=== PATIENT | male | born 1960 | race Caucasian/White ===

== ENCOUNTER 2023-10-09 18:59 | Observation (INO) | payer MEDICARE ==
[~2023-10-09 18:59] MED LIST: D50W 50 ml Abboject IV ONE; SODIUM BICARBONATE 50 MEQ/50 ML ABBOJECT IV ONE
[2023-10-09] MEDS ORDERED: XYLOCAINE 1% HCL 20 ML MDV ONE (19:01)
[2023-10-09] MEDS ORDERED: SODIUM BICARBONATE 50 MEQ/50 ML ABBOJECT IV ONE (19:03)
[2023-10-09] MEDS ORDERED: D50W 50 ml Abboject IV ONE ×5 (19:06→19:15)
[2023-10-09] MEDS ORDERED: DEXTROSE 10% 250 ML 250 ML IV ONE ×2 (19:12→19:52)
[2023-10-09 19:35] LABS: Absolute Neutrophil Ct (ANC) 3.88 x10^3/uL (1.4-6.9); BASOPHIL % 0.7 % (0.0-0.4); Basophil (Absolute #) 0.05 x10^3/uL (0-0.4); Eosinophil % 2.9 % (0.00-5.0); Hemoglobin 12.4 g/dL (12.5-18.0); IMMATURE GRAN # 0.03 x10^3u/L (0.00-0.03); IMMATURE GRAN % 0.4 % (0.00-0.4); Lymphocyte (Absolute #) 2.15 x10^3/uL (1.0-4.6); Lymphocytes % 30.7 % (24.0-44.0); Mean Corpuscular Hemoglobin 27.7 pg (26-32); Mean Corpuscular Hgb Concent. 29.5 g/dL (32-36); Neutrophil % 55.3 % (36.0-66.0); Platelet Count 113 x10^3/uL (150-450); Red Blood Count 4.47 x10^6/uL (4.1-5.6); Red Cell Distribution Width 15.2 % (11.5-14.0)
[2023-10-09 19:35] LABS: VBG BASE EXCESS 8.4 (-2.0-2.0); VBG CARBOXYHEMOGLOBIN 4.1 % T HGB (0.0-6.9); VBG HEMOGLOBIN 12.7; VBG O2 SATURATION 80.3 (95-100); VBG POTASSIUM 3.2 (3.5-5.1); VBG pH 7.44 (7.32-7.42)
[2023-10-09 19:38] LABS: Appearance Clear (Clear); Bacteria None Seen /HPF (None Seen); Bilirubin Negative (Negative); Blood Negative (Negative); Epithelial Cells None Seen /HPF (None Seen); Glucose, Urine >=1000 mg/dL (Negative); Ketones Negative (Negative); Leukocyte Esterase Negative (Negative); Nitrite Negative (Negative); Ph 5.5 (4.6-8.0); Protein,Urine Dip Negative (Negative); RBC 0-2 /HPF (0-5)
[2023-10-09 19:41] LABS: ADD URINE CULTURE? NO (NO)
[2023-10-09 19:45] LABS: ACETAMINOPHEN < 10 ug/ml (10-30); ETHYL ALCOHOL < 10 mg/dL (0-10); SALICYLATE < 1.0 mg/dL (2-20)
[2023-10-09 19:48] LABS: Amphetamine,Urine NEGATIVE (NEGATIVE); Barbiturate,Urine NEGATIVE (NEGATIVE); Benzodiazepine,Urine NEGATIVE (NEGATIVE); Cocaine,Urine NEGATIVE (NEGATIVE); Methadone,Urine NEGATIVE (NEGATIVE); Opiate,Urine NEGATIVE (NEGATIVE); PCP,Urine NEGATIVE (NEGATIVE); THC,Urine NEGATIVE (NEGATIVE)
[2023-10-09 19:54] LABS: ALBUMIN 4.1 g/dL (3.5-5.0); ANION GAP 12.6 MEQ/L (5-15); BILIRUBIN,TOTAL 1.2 mg/dL (0.2-1.3); Calcium 8.8 mg/dL (8.4-10.2); Creatinine 1 1.7 mg/dL (0.66-1.25); EST GLOMERULAR FILTRATION RATE 44.5 ML/MIN; Potassium 3.2 mmol/L (3.5-5.1); Total Protein 6.8 g/dL (6.3-8.2)
[2023-10-09 20:34] LABS: INFLUENZA A NEGATIVE (NEGATIVE); INFLUENZA B NEGATIVE (NEGATIVE); RESPIRATORY SYNCTIAL VIRUS NEGATIVE (NEGATIVE); SARS-CoV-2 Xpert Express NEGATIVE (NEGATIVE)
[2023-10-09] MEDS ORDERED: Sodium Chloride 0.9% 1000 ML 1,000 ML ONE (21:18)
[2023-10-09] MEDS ORDERED: PIPERACILLIN/TAZOBACTAM IV ONE (21:18)
[2023-10-09] MEDS ORDERED: Sodium Chloride 100ML MINI-BAG PLUS 0 ML IV ONE (21:19)
[2023-10-09] MEDS: Sodium Chloride 0.9% 1000 ML 1,000 ML IV STA (21:21)
[2023-10-09] MEDS: PIPERACILLIN/TAZOBACTAM 3.375 GM in Sodium Chloride 100ML MINI-BAG PLUS 100 ML IV ONE (21:26)
--- NOTE | 2023-10-09 22:05 | ERPHSYRPT ---
- History of Present Illness Time Seen by Provider: 10/09/23 19:09 Source: patient Exam Limitations: no limitations Patient Subjective Stated Complaint: Unresponsive Triage Nursing Assessment: Patient brought to ED per friend in POV. Friend came to ER bay and asked for help that patient's blood sugar was 46 and he was given a cookie. Patient noted to be unsponsive. Patient removed from car with assist 5 staff members and placed onto bed. Patient's BS noted to be 26. Patient noted to have snoring respiration. Patient's skin flushed, cool and diaphoretic. Physician History: Patient arrives pale, diaphoretic, minimally responsive. Patient had a low blood sugar just prior to arrival at by a friend at [place]. He was given a cookie but then became unresponsive. Blood sugar initially in the ER is 26.He is having sonorous respirations, flushed skin, cool, diaphoretic. Patient's girlfriend and sister are on the way. Patient's girlfriend did eventually arrive states that patient has not eaten since approximately noon. Just prior to going to [place] he took his toujeo maxsolution. Did not eat after this. Allergies/Adverse Reactions: Penicillins Allergy (Verified 10/09/23 19:14) Hx Tetanus, Diphtheria Vaccination/Date Given: (unknown) Hx Influenza Vaccination/Date Given: (unknown) Hx Pneumococcal Vaccination/Date Given: (unknown) Immunizations Up to Date: (unknown) Travel Risk - International Travel Have you traveled outside of the country in past 3 weeks: No - Coronavirus Screening Are you exhibiting any of the following symptoms?: No Close contact with a COVID-19 positive Pt in past 14-21 Days: No - Vaccine Status Have you recieved a Covid-19 vaccination: No - Review of Systems All Other Systems: Unable due to condition - Past Medical History Pertinent Past Medical History: Yes Neurological History: No Pertinent History ENT History: No Pertinent History Cardiac History: Hypertension Respiratory History: No Pertinent History Endocrine Medical History: Diabetes Type II Musculoskeletal History: No Pertinent History GI Medical History: No Pertinent History History: No Pertinent History Psycho-Social History: No Pertinent History Male Reproductive Disorders: No Pertinent History - Past Surgical History Past Surgical History: Yes Other Surgical History: girlfriend states some type of heart surgery 10 years ago. Left eye surgery Apr 2023 - Social History Smoking Status: Unknown if ever smoked Exposure to second hand smoke: No Drug Use: none Patient Lives Alone: No - Nursing Vital Signs Nursing Vital Signs: Initial Vital Signs Pulse Rate 78 10/09/23 19:00 Respiratory Rate 20 10/09/23 19:00 Blood Pressure 150/112 10/09/23 19:00 O2 Sat by Pulse Oximetry 92 L 10/09/23 19:00 Pain Scale Pain Intensity 0 - Physical Exam SpO2 Interpretation: normal SpO2: 96 Comments: 10/09/23 23:15 Physical Exam Vitals signs and nursing note reviewed. Constitutional: Appearance: Minimally responsive, diaphoretic, patient does have a pulse HENT: Head: Normocephalic and atraumatic. Eyes: Conjunctiva/sclera: Conjunctivae normal. Neck: Trachea: No tracheal deviation. Cardiovascular: Rate and Rhythm: Normal rate. Pulmonary: Effort: Sonorous respiration Abdominal: Palpations: Abdomen is soft. Musculoskeletal: General: No deformity. Skin: General: Skin is warm and dry. Neurological/ Psychiatric: Mental Status: Minimally responsive, GCS less than - Course Nursing assessment & vital signs reviewed: Yes EKG Interpreted by Me: Sinus Rhythm (EKG shows sinus rhythm, right bundle branch block, no obvious STEMI) Ordered Tests: Active Orders 24 hr Category Date Time Status Bedrest ROUTINE Activity 10/09/23 22:14 Active Up With Assistance ROUTINE Activity 10/09/23 22:13 Active Call Admit Doctor for Orders ON ADMISSION Care 10/09/23 22:13 Active Vessel Specialist STAT Care 10/09/23 19:10 Active Code Status Order ROUTINE Care 10/09/23 22:13 Active Fall Protocol ROUTINE Care 10/09/23 22:[address] in Observation ROUTINE Care 10/09/23 22:13 Active Rectal Temperature STAT Care 10/09/23 19:09 Completed House Regular Diet Diet 10/10/23 Breakfast Active CHEST 1 VIEW (PORTABLE) Stat Exams 10/09/23 19:10 Taken HEAD WITHOUT CONTRAST [CT] Stat Exams 10/09/23 19:10 Taken ACETAMINOPHEN Stat Lab 10/09/23 19:20 Completed BLOOD CULTURE Stat Lab 10/09/23 19:55 Received CBC W DIFF Stat Lab 10/09/23 19:09 Completed CMP Stat Lab 10/09/23 19:23 Completed CULTURE,URINE Stat Lab 10/09/23 19:28 Ordered ETHYL ALCOHOL Stat Lab 10/09/23 19:20 Completed Lactic Acid Stat Lab 10/09/23 19:33 Completed Lactic Acid Stat Lab 10/09/23 21:37 Received NT PRO BNPII Stat Lab 10/09/23 19:23 Completed POCT GLUCOSE Stat Lab 10/09/23 19:24 Completed POCT GLUCOSE Stat Lab 10/09/23 19:47 Completed POCT GLUCOSE Stat Lab 10/09/23 20:38 Completed POCT GLUCOSE Stat Lab 10/09/23 21:52 Completed POCT GLUCOSE Stat Lab 10/09/23 23:11 Completed SALICYLATE Stat Lab 10/09/23 19:20 Completed TROPONIN Q4H Lab 10/09/23 19:23 Completed TROPONIN Q4H Lab 10/09/23 23:15 Ordered TROPONIN Q4H Lab 10/10/23 03:15 Ordered UA W/RFX UR CULTURE Stat Lab 10/09/23 19:28 Completed Urine Triage Profile Stat Lab 10/09/23 19:28 Completed VENOUS BLOOD GAS Stat Lab 10/09/23 19:33 Completed Pulse Oximetry CONTINUOUS RT 10/09/23 22:14 Active Respiratory Therapy Consult ONCE RT 10/09/23 22:13 Active Standby STAT RT 10/09/23 19:42 Completed Transfer Order Routine Transfer 10/09/23 Ordered Medication Summary Discontinued Medications Generic Name Dose Route Start Last Admin Trade Name Freq PRN Reason Stop Dose Admin Cefepime HCl Confirm 10/09/23 22:26 Cefepime Hcl 2 Gm Vial Administered 10/09/23 22:27 Dose 2 g .ROUTE .STK-MED ONE Dextrose Confirm 10/09/23 19:06 Dextrose 50%-Water 50 Ml Abboject Administered 10/09/23 19:07 Dose 50 ml IV .STK-MED ONE Dextrose Confirm 10/09/23 19:15 Dextrose 50%-Water 50 Ml Abboject Administered 10/09/23 19:16 Dose 50 ml IV .STK-MED ONE Sodium Chloride 1,000 mls @ 999 mls/hr 10/09/23 19:09 10/09/23 22:56 Sodium Chloride 0.9% 1000 Ml IV 10/09/23 20:09 Infused .Q1H1M STA Infusion Dextrose Confirm 10/09/23 19:52 Dextrose 10% 250 Ml Administered 10/09/23 19:53 Dose 250 mls @ ud IV .STK-MED ONE Piperacillin Sod/Tazobactam 100 mls @ 200 mls/hr 10/09/23 20:15 10/09/23 21:26 Sod 3.375 gm/ Sodium Chloride IV 10/09/23 20:44 Not Given STAT ONE Sodium Chloride Confirm 10/09/23 21:18 Sodium Chloride 0.9% 1000 Ml Administered 10/09/23 21:19 Dose 1,000 mls @ ud .ROUTE .STK-MED ONE Sodium Chloride Confirm 10/09/23 21:19 Sodium Chloride 100ml Mini-Bag Plus Administered 10/09/23 21:20 Dose 100 mls @ ud IV .STK-MED ONE Cefepime HCl 2 g/ Sodium 100 mls @ 200 mls/hr 10/09/23 22:18 10/09/23 22:38 Chloride IV 10/09/23 22:47 200 mls/hr STAT STA Administration Ceftriaxone Sodium/Dextrose Confirm 10/09/23 22:21 Rocephin 2 Gm-D5w 50ml Bag Administered 10/09/23 22:22 Dose 2 g in 50 mls @ ud IV .STK-MED ONE Sodium Chloride Confirm 10/09/23 22:27 Sodium Chloride 0.9% Administered 10/09/23 22:28 Dose 100 mls @ ud .ROUTE .STK-MED ONE Piperacillin Sod/Tazobactam Sod Confirm 10/09/23 21:18 Piperacillin/Tazobactam Sodium 3.375 Gm Vial Administered 10/09/23 21:19 Dose 3.375 gm IV .STK-MED ONE Lab/Rad Data: Laboratory Result Diagrams 10/09/23 19:09 10/09/23 19:23 Laboratory Results 10/09/23 10/09/23 10/09/23 Range/Units 23:11 21:52 20:38 WBC (4.0-10.5) x10^3/uL RBC (4.1-5.6) x10^6/uL Hgb (12.5-18.0) g/dL Hct (42-50) % MCV (78-100) fL MCH (26-32) pg MCHC (32-36) g/dL RDW (11.5-14.0) % Plt Count (150-450) x10^3/uL MPV (7.5-11.0) fL Gran % (36.0-66.0) % Immature Gran % (Auto) (0.00-0.4) % Nucleat RBC Rel Count (0.00-0.1) % Eos # (Auto) (0-0.5) x10^3/uL Immature Gran # (Auto) (0.00-0.03) x10^3u/L Absolute Lymphs (auto) (1.0-4.6) x10^3/uL Absolute Monos (auto) (0.0-1.3) x10^3/uL Absolute Nucleated RBC (0.00-0.01) x10^3u/L Lymphocytes % (24.0-44.0) % Monocytes % (0.0-12.0) % Eosinophils % (0.00-5.0) % Basophils % (0.0-0.4) % Absolute Granulocytes (1.4-6.9) x10^3/uL Basophils # (0-0.4) x10^3/uL pO2/FiO2 Ratio % VBG pH (7.32-7.42) VBG pCO2 at Pat Temp (42-55) mm/Hg VBG pO2 at Pat Temp (25-40) mm/Hg VBG HCO3 (22-28) meq/L VBG O2 Sat (Christel) (95-100) VBG Base Excess (-2.0-2.0) VBG Hemoglobin VBG Carboxyhemoglobin (0.0-6.9) % T HGB POC Potassium (3.5-5.1) Sodium (135-145) mmol/L Potassium (3.5-5.1) mmol/L Chloride (98-107) mmol/L Carbon Dioxide (22-30) mmol/L Anion Gap (5-15) MEQ/L BUN (9-20) mg/dL Creatinine (0.66-1.25) mg/dL Estimated GFR ML/MIN Glucose (74-106) mg/dL POC Glucometer 147 H 150 H 118 H (74 to 106) mg/dL Lactic Acid (0.4-2.0) Calcium (8.4-10.2) mg/dL Total Bilirubin (0.2-1.3) mg/dL AST (17-59) U/L ALT (0-50) U/L Alkaline Phosphatase (38-126) U/L Troponin I (0.000-0.034) ng/mL NT-Pro-B Natriuret Pep (<300) pg/mL Serum Total Protein (6.3-8.2) g/dL Albumin (3.5-5.0) g/dL Urine Color (Yellow) Urine Appearance (Clear) Urine pH (4.6-8.0) Ur Specific Sharon (1.005-1.030) Urine Protein (Negative) Urine Glucose (UA) (Negative) mg/dL Urine Ketones (Negative) Urine Blood (Negative) Urine Nitrite (Negative) Urine Bilirubin (Negative) Urine Urobilinogen (0.2) mg/dL Ur Leukocyte Esterase (Negative) U Hyaline Cast (Auto) (0-2) /LPF Urine Microscopic RBC (0-5) /HPF Urine Microscopic WBC (0-5) /HPF Ur Epithelial Cells (None Seen) /HPF Urine Bacteria (None Seen) /HPF Urine Culture Reflexed (NO) Salicylates (2-20) mg/dL Urine Opiates Level (NEGATIVE) Ur Methadone (NEGATIVE) Acetaminophen (10-30) ug/ml Urine Barbiturates (NEGATIVE) Ur Phencyclidine (PCP) (NEGATIVE) Urine Amphetamine (NEGATIVE) U Benzodiazepine Level (NEGATIVE) Urine Cocaine (NEGATIVE) Urine Marijuana (THC) (NEGATIVE) Ethyl Alcohol (0-10) mg/dL Influenza Type A Ag (NEGATIVE) Influenza Type B Ag (NEGATIVE) RSV (PCR) (NEGATIVE) SARS-CoV-2 (PCR) (NEGATIVE) 10/09/23 10/09/23 10/09/23 Range/Units 19:47 19:33 19:33 WBC (4.0-10.5) x10^3/uL RBC (4.1-5.6) x10^6/uL Hgb (12.5-18.0) g/dL Hct (42-50) % MCV (78-100) fL MCH (26-32) pg MCHC (32-36) g/dL RDW (11.5-14.0) % Plt Count (150-450) x10^3/uL MPV (7.5-11.0) fL Gran % (36.0-66.0) % Immature Gran % (Auto) (0.00-0.4) % Nucleat RBC Rel Count (0.00-0.1) % Eos # (Auto) (0-0.5) x10^3/uL Immature Gran # (Auto) (0.00-0.03) x10^3u/L Absolute Lymphs (auto) (1.0-4.6) x10^3/uL Absolute Monos (auto) (0.0-1.3) x10^3/uL Absolute Nucleated RBC (0.00-0.01) x10^3u/L Lymphocytes % (24.0-44.0) % Monocytes % (0.0-12.0) % Eosinophils % (0.00-5.0) % Basophils % (0.0-0.4) % Absolute Granulocytes (1.4-6.9) x10^3/uL Basophils # (0-0.4) x10^3/uL pO2/FiO2 Ratio 36.0 % VBG pH 7.44 H (7.32-7.42) VBG pCO2 at Pat Temp 50 (42-55) mm/Hg VBG pO2 at Pat Temp 51 H (25-40) mm/Hg VBG HCO3 34.0 H* (22-28) meq/L VBG O2 Sat (Christel) 80.3 L (95-100) VBG Base Excess 8.4 H (-2.0-2.0) VBG Hemoglobin 12.7 VBG Carboxyhemoglobin 4.1 (0.0-6.9) % T HGB POC Potassium 3.2 L (3.5-5.1) Sodium (135-145) mmol/L Potassium (3.5-5.1) mmol/L Chloride (98-107) mmol/L Carbon Dioxide (22-30) mmol/L Anion Gap (5-15) MEQ/L BUN (9-20) mg/dL Creatinine (0.66-1.25) mg/dL Estimated GFR ML/MIN Glucose (74-106) mg/dL POC Glucometer 116 H (74 to 106) mg/dL Lactic Acid 2.7 H (0.4-2.0) Calcium (8.4-10.2) mg/dL Total Bilirubin (0.2-1.3) mg/dL AST (17-59) U/L ALT (0-50) U/L Alkaline Phosphatase (38-126) U/L Troponin I (0.000-0.034) ng/mL NT-Pro-B Natriuret Pep (<300) pg/mL Serum Total Protein (6.3-8.2) g/dL Albumin (3.5-5.0) g/dL Urine Color (Yellow) Urine Appearance (Clear) Urine pH (4.6-8.0) Ur Specific Sharon (1.005-1.030) Urine Protein (Negative) Urine Glucose (UA) (Negative) mg/dL Urine Ketones (Negative) Urine Blood (Negative) Urine Nitrite (Negative) Urine Bilirubin (Negative) Urine Urobilinogen (0.2) mg/dL Ur Leukocyte Esterase (Negative) U Hyaline Cast (Auto) (0-2) /LPF Urine Microscopic RBC (0-5) /HPF Urine Microscopic WBC (0-5) /HPF Ur Epithelial Cells (None Seen) /HPF Urine Bacteria (None Seen) /HPF Urine Culture Reflexed (NO) Salicylates (2-20) mg/dL Urine Opiates Level (NEGATIVE) Ur Methadone (NEGATIVE) Acetaminophen (10-30) ug/ml Urine Barbiturates (NEGATIVE) Ur Phencyclidine (PCP) (NEGATIVE) Urine Amphetamine (NEGATIVE) U Benzodiazepine Level (NEGATIVE) Urine Cocaine (NEGATIVE) Urine Marijuana (THC) (NEGATIVE) Ethyl Alcohol (0-10) mg/dL Influenza Type A Ag (NEGATIVE) Influenza Type B Ag (NEGATIVE) RSV (PCR) (NEGATIVE) SARS-CoV-2 (PCR) (NEGATIVE) 10/09/23 10/09/23 10/09/23 Range/Units 19:28 19:28 19:24 WBC (4.0-10.5) x10^3/uL RBC (4.1-5.6) x10^6/uL Hgb (12.5-18.0) g/dL Hct (42-50) % MCV (78-100) fL MCH (26-32) pg MCHC (32-36) g/dL RDW (11.5-14.0) % Plt Count (150-450) x10^3/uL MPV (7.5-11.0) fL Gran % (36.0-66.0) % Immature Gran % (Auto) (0.00-0.4) % Nucleat RBC Rel Count (0.00-0.1) % Eos # (Auto) (0-0.5) x10^3/uL Immature Gran # (Auto) (0.00-0.03) x10^3u/L Absolute Lymphs (auto) (1.0-4.6) x10^3/uL Absolute Monos (auto) (0.0-1.3) x10^3/uL Absolute Nucleated RBC (0.00-0.01) x10^3u/L Lymphocytes % (24.0-44.0) % Monocytes % (0.0-12.0) % Eosinophils % (0.00-5.0) % Basophils % (0.0-0.4) % Absolute Granulocytes (1.4-6.9) x10^3/uL Basophils # (0-0.4) x10^3/uL pO2/FiO2 Ratio % VBG pH (7.32-7.42) VBG pCO2 at Pat Temp (42-55) mm/Hg VBG pO2 at Pat Temp (25-40) mm/Hg VBG HCO3 (22-28) meq/L VBG O2 Sat (Christel) (95-100) VBG Base Excess (-2.0-2.0) VBG Hemoglobin VBG Carboxyhemoglobin (0.0-6.9) % T HGB POC Potassium (3.5-5.1) Sodium (135-145) mmol/L Potassium (3.5-5.1) mmol/L Chloride (98-107) mmol/L Carbon Dioxide (22-30) mmol/L Anion Gap (5-15) MEQ/L BUN (9-20) mg/dL Creatinine (0.66-1.25) mg/dL Estimated GFR ML/MIN Glucose (74-106) mg/dL POC Glucometer 117 H (74 to 106) mg/dL Lactic Acid (0.4-2.0) Calcium (8.4-10.2) mg/dL Total Bilirubin (0.2-1.3) mg/dL AST (17-59) U/L ALT (0-50) U/L Alkaline Phosphatase (38-126) U/L Troponin I (0.000-0.034) ng/mL NT-Pro-B Natriuret Pep (<300) pg/mL Serum Total Protein (6.3-8.2) g/dL Albumin (3.5-5.0) g/dL Urine Color Yellow (Yellow) Urine Appearance Clear (Clear) Urine pH 5.5 (4.6-8.0) Ur Specific Sharon 1.020 (1.005-1.030) Urine Protein Negative (Negative) Urine Glucose (UA) >=1000 A (Negative) mg/dL Urine Ketones Negative (Negative) Urine Blood Negative (Negative) Urine Nitrite Negative (Negative) Urine Bilirubin Negative (Negative) Urine Urobilinogen 1.0 A (0.2) mg/dL Ur Leukocyte Esterase Negative (Negative) U Hyaline Cast (Auto) 3-5 A (0-2) /LPF Urine Microscopic RBC 0-2 (0-5) /HPF Urine Microscopic WBC 3-5 (0-5) /HPF Ur Epithelial Cells None Seen (None Seen) /HPF Urine Bacteria None Seen (None Seen) /HPF Urine Culture Reflexed NO (NO) Salicylates (2-20) mg/dL Urine Opiates Level NEGATIVE (NEGATIVE) Ur Methadone NEGATIVE (NEGATIVE) Acetaminophen (10-30) ug/ml Urine Barbiturates NEGATIVE (NEGATIVE) Ur Phencyclidine (PCP) NEGATIVE (NEGATIVE) Urine Amphetamine NEGATIVE (NEGATIVE) U Benzodiazepine Level NEGATIVE (NEGATIVE) Urine Cocaine NEGATIVE (NEGATIVE) Urine Marijuana (THC) NEGATIVE (NEGATIVE) Ethyl Alcohol (0-10) mg/dL Influenza Type A Ag (NEGATIVE) Influenza Type B Ag (NEGATIVE) RSV (PCR) (NEGATIVE) SARS-CoV-2 (PCR) (NEGATIVE) 10/09/23 10/09/23 10/09/23 Range/Units 19:23 19:23 19:20 WBC (4.0-10.5) x10^3/uL RBC (4.1-5.6) x10^6/uL Hgb (12.5-18.0) g/dL Hct (42-50) % MCV (78-100) fL MCH (26-32) pg MCHC (32-36) g/dL RDW (11.5-14.0) % Plt Count (150-450) x10^3/uL MPV (7.5-11.0) fL Gran % (36.0-66.0) % Immature Gran % (Auto) (0.00-0.4) % Nucleat RBC Rel Count (0.00-0.1) % Eos # (Auto) (0-0.5) x10^3/uL Immature Gran # (Auto) (0.00-0.03) x10^3u/L Absolute Lymphs (auto) (1.0-4.6) x10^3/uL Absolute Monos (auto) (0.0-1.3) x10^3/uL Absolute Nucleated RBC (0.00-0.01) x10^3u/L Lymphocytes % (24.0-44.0) % Monocytes % (0.0-12.0) % Eosinophils % (0.00-5.0) % Basophils % (0.0-0.4) % Absolute Granulocytes (1.4-6.9) x10^3/uL Basophils # (0-0.4) x10^3/uL pO2/FiO2 Ratio % VBG pH (7.32-7.42) VBG pCO2 at Pat Temp (42-55) mm/Hg VBG pO2 at Pat Temp (25-40) mm/Hg VBG HCO3 (22-28) meq/L VBG O2 Sat (Christel) (95-100) VBG Base Excess (-2.0-2.0) VBG Hemoglobin VBG Carboxyhemoglobin (0.0-6.9) % T HGB POC Potassium (3.5-5.1) Sodium 141 (135-145) mmol/L Potassium 3.2 L (3.5-5.1) mmol/L Chloride 103 (98-107) mmol/L Carbon Dioxide 29 (22-30) mmol/L Anion Gap 12.6 (5-15) MEQ/L BUN 27 H (9-20) mg/dL Creatinine 1.70 H (0.66-1.25) mg/dL Estimated GFR 44.5 ML/MIN Glucose 145 H (74-106) mg/dL POC Glucometer (74 to 106) mg/dL Lactic Acid (0.4-2.0) Calcium 8.8 (8.4-10.2) mg/dL Total Bilirubin 1.20 (0.2-1.3) mg/dL AST 28 (17-59) U/L ALT 16 (0-50) U/L Alkaline Phosphatase 82 (38-126) U/L Troponin I < 0.012 (0.000-0.034) ng/mL NT-Pro-B Natriuret Pep 796 (<300) pg/mL Serum Total Protein 6.8 (6.3-8.2) g/dL Albumin 4.1 (3.5-5.0) g/dL Urine Color (Yellow) Urine Appearance (Clear) Urine pH (4.6-8.0) Ur Specific Sharon (1.005-1.030) Urine Protein (Negative) Urine Glucose (UA) (Negative) mg/dL Urine Ketones (Negative) Urine Blood (Negative) Urine Nitrite (Negative) Urine Bilirubin (Negative) Urine Urobilinogen (0.2) mg/dL Ur Leukocyte Esterase (Negative) U Hyaline Cast (Auto) (0-2) /LPF Urine Microscopic RBC (0-5) /HPF Urine Microscopic WBC (0-5) /HPF Ur Epithelial Cells (None Seen) /HPF Urine Bacteria (None Seen) /HPF Urine Culture Reflexed (NO) Salicylates < 1.0 L (2-20) mg/dL Urine Opiates Level (NEGATIVE) Ur Methadone (NEGATIVE) Acetaminophen < 10 L (10-30) ug/ml Urine Barbiturates (NEGATIVE) Ur Phencyclidine (PCP) (NEGATIVE) Urine Amphetamine (NEGATIVE) U Benzodiazepine Level (NEGATIVE) Urine Cocaine (NEGATIVE) Urine Marijuana (THC) (NEGATIVE) Ethyl Alcohol < 10 (0-10) mg/dL Influenza Type A Ag (NEGATIVE) Influenza Type B Ag (NEGATIVE) RSV (PCR) (NEGATIVE) SARS-CoV-2 (PCR) (NEGATIVE) 10/09/23 10/09/23 Range/Units 19:20 19:09 WBC 7.0 (4.0-10.5) x10^3/uL RBC 4.47 (4.1-5.6) x10^6/uL Hgb 12.4 L (12.5-18.0) g/dL Hct 42.0 (42-50) % MCV 94.0 (78-100) fL MCH 27.7 (26-32) pg MCHC 29.5 L (32-36) g/dL RDW 15.2 H (11.5-14.0) % Plt Count 113 L (150-450) x10^3/uL MPV 11.0 (7.5-11.0) fL Gran % 55.3 (36.0-66.0) % Immature Gran % (Auto) 0.4 (0.00-0.4) % Nucleat RBC Rel Count 0.0 (0.00-0.1) % Eos # (Auto) 0.20 (0-0.5) x10^3/uL Immature Gran # (Auto) 0.03 (0.00-0.03) x10^3u/L Absolute Lymphs (auto) 2.15 (1.0-4.6) x10^3/uL Absolute Monos (auto) 0.70 (0.0-1.3) x10^3/uL Absolute Nucleated RBC 0.00 (0.00-0.01) x10^3u/L Lymphocytes % 30.7 (24.0-44.0) % Monocytes % 10.0 (0.0-12.0) % Eosinophils % 2.9 (0.00-5.0) % Basophils % 0.7 (0.0-0.4) % Absolute Granulocytes 3.88 (1.4-6.9) x10^3/uL Basophils # 0.05 (0-0.4) x10^3/uL pO2/FiO2 Ratio % VBG pH (7.32-7.42) VBG pCO2 at Pat Temp (42-55) mm/Hg VBG pO2 at Pat Temp (25-40) mm/Hg VBG HCO3 (22-28) meq/L VBG O2 Sat (Christel) (95-100) VBG Base Excess (-2.0-2.0) VBG Hemoglobin VBG Carboxyhemoglobin (0.0-6.9) % T HGB POC Potassium (3.5-5.1) Sodium (135-145) mmol/L Potassium (3.5-5.1) mmol/L Chloride (98-107) mmol/L Carbon Dioxide (22-30) mmol/L Anion Gap (5-15) MEQ/L BUN (9-20) mg/dL Creatinine (0.66-1.25) mg/dL Estimated GFR ML/MIN Glucose (74-106) mg/dL POC Glucometer (74 to 106) mg/dL Lactic Acid (0.4-2.0) Calcium (8.4-10.2) mg/dL Total Bilirubin (0.2-1.3) mg/dL AST (17-59) U/L ALT (0-50) U/L Alkaline Phosphatase (38-126) U/L Troponin I (0.000-0.034) ng/mL NT-Pro-B Natriuret Pep (<300) pg/mL Serum Total Protein (6.3-8.2) g/dL Albumin (3.5-5.0) g/dL Urine Color (Yellow) Urine Appearance (Clear) Urine pH (4.6-8.0) Ur Specific Sharon (1.005-1.030) Urine Protein (Negative) Urine Glucose (UA) (Negative) mg/dL Urine Ketones (Negative) Urine Blood (Negative) Urine Nitrite (Negative) Urine Bilirubin (Negative) Urine Urobilinogen (0.2) mg/dL Ur Leukocyte Esterase (Negative) U Hyaline Cast (Auto) (0-2) /LPF Urine Microscopic RBC (0-5) /HPF Urine Microscopic WBC (0-5) /HPF Ur Epithelial Cells (None Seen) /HPF Urine Bacteria (None Seen) /HPF Urine Culture Reflexed (NO) Salicylates (2-20) mg/dL Urine Opiates Level (NEGATIVE) Ur Methadone (NEGATIVE) Acetaminophen (10-30) ug/ml Urine Barbiturates (NEGATIVE) Ur Phencyclidine (PCP) (NEGATIVE) Urine Amphetamine (NEGATIVE) U Benzodiazepine Level (NEGATIVE) Urine Cocaine (NEGATIVE) Urine Marijuana (THC) (NEGATIVE) Ethyl Alcohol (0-10) mg/dL Influenza Type A Ag NEGATIVE (NEGATIVE) Influenza Type B Ag NEGATIVE (NEGATIVE) RSV (PCR) NEGATIVE (NEGATIVE) SARS-CoV-2 (PCR) NEGATIVE (NEGATIVE) - Progress Progress: improved Progress Note: 10/09/23 23:17 Patient is minimally responsive, blood glucose of 26, differential diagnosis includes stroke, STEMI, sepsis, other infection, hypoglycemia due to medications. See nursing charting for list of full details. In short several things simultaneously happened including drilling an IO for access as patient did not have any IV access. Patient was given D50 through the IO. Patient became more responsive, D10 drip was started. I did obtain a head CT, troponins, toxicology screening, basic labs, fluids. I also gave cefepime 1 dose in case there was a component of sepsis with this. Overall, patient did respond well to medications. Head CT was negative for any acute stroke, bleed. EKG demonstrated no STEMI, other obvious cardiac issues. Patient did wake up more blood glucose consistently greater than 100. Patient was able to eat an full meal. Given overall presentation I do believe patient needs to be admitted for observation overnight, continued close monitoring, possible multiple troponins a nd continued antibiotics. Given all this I did speak to the hospitalist, Dr. Velez. Unfortunately, patient was also given bicarb when D50 was called for, 2 rounds through the IO during the commotion. This was due to a medication error, incident report was filed and I did update the family about the incident. Discussed with : Other (Yousuf Velez) Counseled pt/family regarding: lab results, diagnosis, need for follow-up, rad results - Departure Departure Disposition: Home Clinical Impression: Hypoglycemia Condition: Stable Critical Care Time: No
[2023-10-09] MEDS ORDERED: ROCEPHIN 2 Gm-D5w 50ML BAG** 0 G/0 ML IVPB IV ONE (22:21)
[2023-10-09] MEDS ORDERED: Maxipime 2 GM ONE (22:26)
[2023-10-09] MEDS ORDERED: Sodium Chloride 0.9% 100 ML ONE (22:27)
[2023-10-09] MEDS: Maxipime 2 GM** 2 G in Sodium Chloride 0.9% 100 ML IV STA (22:38)
--- NOTE | 2023-10-10 00:30 | PCM.HP ---
History of Present Illness - Chief Complaint Chief Complaint: hypoglycemia Date: 10/09/23 History of Present Illness: Mr. RAM is a 63 year old male with a past medical history significant for hypertension, diabetes, and hyperlipdemia who was brought to the hospital with altered mental status attributed to marked hypoglycemia. He had given himself his usual insulin shot and then went to a function where he was confused. Blood sugars were in the 20-30s, so he was given multiple doses of glucose to raise his sugars. He has been recommended for admission. He is resting in bed, lethargic but arousable. He is hemodynamically stable and in no apparent distress. - Review of Systems Constitutional: No Fever, No Chills, No Fatigue Eyes: No Vision Changes Ears, Nose, & Throat: No Mouth Pain Respiratory: No Cough, No Orthopnea, No Short Of Breath Cardiac: No Chest Pain, No Edema, No Palpitations Abdominal/Gastrointestinal: No Abdominal Pain, No Nausea, No Vomiting Genitourinary Symptoms: No Dysuria, No Frequency, No Hematuria Musculoskeletal: No Arthralgias Skin: No Rash, No Skin Lesions Neurological: No Dizziness, No Focal Weakness, No Gait Changes Psychological: No Suicidal Ideations Endocrine: No Polyuria, No Polydipsia Medications & Allergies Home Medications: Home Medication List Aspirin EC 81 mg [Ecotrin 81 mg] 81 mg PO DAILY 10/09/23 [History Confirmed 10/09/23] Clopidogrel Bisulfate [Clopidogrel] 75 mg PO DAILY 10/09/23 [History Confirmed 10/09/23] Dulaglutide [Trulicity] 4.5 mg SQ WEEKLY 10/09/23 [History Confirmed 10/09/23] Empagliflozin/Linagliptin [Glyxambi 25 mg-5 mg Tablet] 1 each PO DAILY 10/09/23 [History Confirmed 10/09/23] Evolocumab [Repatha Sureclick] 140 mg SQ UD 10/09/23 [History Confirmed 10/09/23] Ezetimibe 10 mg [Zetia 10 MG] 10 mg PO DAILY 10/09/23 [History Confirmed 10/09/23] Furosemide 20 mg [Lasix 20 mg] 20 mg PO DAILY 10/09/23 [History Confirmed 10/09/23] Insulin Glargine,Hum.rec.anlog [Jhon Contreras] 50 unit SQ DAILY 10/09/23 [History Confirmed 10/09/23] Metoprolol Succinate 25 mg PO DAILY 10/09/23 [History Confirmed 10/09/23] Pentoxifylline 400 mg PO BID 10/09/23 [History Confirmed 10/09/23] Pioglitazone HCl 45 mg PO DAILY 10/09/23 [History Confirmed 10/09/23] Potassium Chloride 8 meq PO DAILY 10/09/23 [History Confirmed 10/09/23] Ubidecarenone/Vit E Acet [Co Q-10 100 mg Softgel] 1 each PO DAILY 10/09/23 [History Confirmed 10/09/23] lisinopriL [Lisinopril] 40 mg PO DAILY 10/09/23 [History Confirmed 10/09/23] Allergies/Adverse Reactions: Allergies Allergy/AdvReac Type Severity Reaction Status Date / Time Penicillins Allergy Verified 10/09/23 19:14 - Past Medical History Past Medical History: Yes Neurological History: No Pertinent History ENT History: No Pertinent History Cardiac History: Hypertension Respiratory History: No Pertinent History Endocrine Medical History: Diabetes Type II Musculoskelatal History: No Pertinent History GI Medical History: No Pertinent History History: No Pertinent History Pyscho-Social History: No Pertinent History Male Reproductive Disorders: No Pertinent History - Past Surgical History Past Surgical History: Yes Other Surgical History: girlfriend states some type of heart surgery 10 years ago. Left eye surgery Apr 2023 - Social History Smoking Status: Unknown if ever smoked Exposure to second hand smoke: No Alcohol: None Drug Use: none - Physical Exam Vital Signs: Vital Signs - 24 hr Temp Pulse Resp BP BP Pulse Ox 10/09/23 23:35 76 20 97 10/09/23 23:22 96 10/09/23 23:00 72 2 L 136/50 97 10/09/23 22:31 73 6 L 144/59 97 10/09/23 22:00 97.2 F 79 14 159/62 96 10/09/23 21:30 97.2 F 79 15 117/66 97 10/09/23 21:01 96.4 F 77 14 123/69 96 10/09/23 20:31 71 15 148/66 100 10/09/23 20:00 72 19 146/72 100 10/09/23 19:38 73 16 142/102 98 10/09/23 19:20 82 17 99 10/09/23 19:00 78 20 150/112 92 L General Appearance: no apparent distress Neurologic Exam: disoriented Neck Exam: normal inspection, supple Respiratory Exam: No respiratory distress, No accessory muscle use Cardiovascular Exam: regular rate/rhythm Gastrointestinal/Abdomen Exam: soft Extremity Exam: No pedal edema, No swelling Skin Exam: normal color, No rash Results - Labs Lab/Micro Results: Lab Results-Last 24 Hours 10/09/23 10/09/23 10/09/23 Range/Units 19:09 19:20 19:20 WBC 7.0 (4.0-10.5) x10^3/uL RBC 4.47 (4.1-5.6) x10^6/uL Hgb 12.4 L (12.5-18.0) g/dL Hct 42.0 (42-50) % MCV 94.0 (78-100) fL MCH 27.7 (26-32) pg MCHC 29.5 L (32-36) g/dL RDW 15.2 H (11.5-14.0) % Plt Count 113 L (150-450) x10^3/uL MPV 11.0 (7.5-11.0) fL Gran % 55.3 (36.0-66.0) % Immature Gran % (Auto) 0.4 (0.00-0.4) % Nucleat RBC Rel Count 0.0 (0.00-0.1) % Eos # (Auto) 0.20 (0-0.5) x10^3/uL Immature Gran # (Auto) 0.03 (0.00-0.03) x10^3u/L Absolute Lymphs (auto) 2.15 (1.0-4.6) x10^3/uL Absolute Monos (auto) 0.70 (0.0-1.3) x10^3/uL Absolute Nucleated RBC 0.00 (0.00-0.01) x10^3u/L Lymphocytes % 30.7 (24.0-44.0) % Monocytes % 10.0 (0.0-12.0) % Eosinophils % 2.9 (0.00-5.0) % Basophils % 0.7 (0.0-0.4) % Absolute Granulocytes 3.88 (1.4-6.9) x10^3/uL Basophils # 0.05 (0-0.4) x10^3/uL pO2/FiO2 Ratio % VBG pH (7.32-7.42) VBG pCO2 at Pat Temp (42-55) mm/Hg VBG pO2 at Pat Temp (25-40) mm/Hg VBG HCO3 (22-28) meq/L VBG O2 Sat (Christel) (95-100) VBG Base Excess (-2.0-2.0) VBG Hemoglobin VBG Carboxyhemoglobin (0.0-6.9) % T HGB POC Potassium (3.5-5.1) Sodium (135-145) mmol/L Potassium (3.5-5.1) mmol/L Chloride (98-107) mmol/L Carbon Dioxide (22-30) mmol/L Anion Gap (5-15) MEQ/L BUN (9-20) mg/dL Creatinine (0.66-1.25) mg/dL Estimated GFR ML/MIN Glucose (74-106) mg/dL POC Glucometer (74 to 106) mg/dL Lactic Acid (0.4-2.0) Calcium (8.4-10.2) mg/dL Total Bilirubin (0.2-1.3) mg/dL AST (17-59) U/L ALT (0-50) U/L Alkaline Phosphatase (38-126) U/L Troponin I (0.000-0.034) ng/mL NT-Pro-B Natriuret Pep (<300) pg/mL Serum Total Protein (6.3-8.2) g/dL Albumin (3.5-5.0) g/dL Urine Color (Yellow) Urine Appearance (Clear) Urine pH (4.6-8.0) Ur Specific Crooks (1.005-1.030) Urine Protein (Negative) Urine Glucose (UA) (Negative) mg/dL Urine Ketones (Negative) Urine Blood (Negative) Urine Nitrite (Negative) Urine Bilirubin (Negative) Urine Urobilinogen (0.2) mg/dL Ur Leukocyte Esterase (Negative) U Hyaline Cast (Auto) (0-2) /LPF Urine Microscopic RBC (0-5) /HPF Urine Microscopic WBC (0-5) /HPF Ur Epithelial Cells (None Seen) /HPF Urine Bacteria (None Seen) /HPF Urine Culture Reflexed (NO) Salicylates < 1.0 L (2-20) mg/dL Urine Opiates Level (NEGATIVE) Ur Methadone (NEGATIVE) Acetaminophen < 10 L (10-30) ug/ml Urine Barbiturates (NEGATIVE) Ur Phencyclidine (PCP) (NEGATIVE) Urine Amphetamine (NEGATIVE) U Benzodiazepine Level (NEGATIVE) Urine Cocaine (NEGATIVE) Urine Marijuana (THC) (NEGATIVE) Ethyl Alcohol < 10 (0-10) mg/dL Influenza Type A Ag NEGATIVE (NEGATIVE) Influenza Type B Ag NEGATIVE (NEGATIVE) RSV (PCR) NEGATIVE (NEGATIVE) SARS-CoV-2 (PCR) NEGATIVE (NEGATIVE) 10/09/23 10/09/23 10/09/23 Range/Units 19:23 19:23 19:24 WBC (4.0-10.5) x10^3/uL RBC (4.1-5.6) x10^6/uL Hgb (12.5-18.0) g/dL Hct (42-50) % MCV (78-100) fL MCH (26-32) pg MCHC (32-36) g/dL RDW (11.5-14.0) % Plt Count (150-450) x10^3/uL MPV (7.5-11.0) fL Gran % (36.0-66.0) % Immature Gran % (Auto) (0.00-0.4) % Nucleat RBC Rel Count (0.00-0.1) % Eos # (Auto) (0-0.5) x10^3/uL Immature Gran # (Auto) (0.00-0.03) x10^3u/L Absolute Lymphs (auto) (1.0-4.6) x10^3/uL Absolute Monos (auto) (0.0-1.3) x10^3/uL Absolute Nucleated RBC (0.00-0.01) x10^3u/L Lymphocytes % (24.0-44.0) % Monocytes % (0.0-12.0) % Eosinophils % (0.00-5.0) % Basophils % (0.0-0.4) % Absolute Granulocytes (1.4-6.9) x10^3/uL Basophils # (0-0.4) x10^3/uL pO2/FiO2 Ratio % VBG pH (7.32-7.42) VBG pCO2 at Pat Temp (42-55) mm/Hg VBG pO2 at Pat Temp (25-40) mm/Hg VBG HCO3 (22-28) meq/L VBG O2 Sat (Christel) (95-100) VBG Base Excess (-2.0-2.0) VBG Hemoglobin VBG Carboxyhemoglobin (0.0-6.9) % T HGB POC Potassium (3.5-5.1) Sodium 141 (135-145) mmol/L Potassium 3.2 L (3.5-5.1) mmol/L Chloride 103 (98-107) mmol/L Carbon Dioxide 29 (22-30) mmol/L Anion Gap 12.6 (5-15) MEQ/L BUN 27 H (9-20) mg/dL Creatinine 1.70 H (0.66-1.25) mg/dL Estimated GFR 44.5 ML/MIN Glucose 145 H (74-106) mg/dL POC Glucometer 117 H (74 to 106) mg/dL Lactic Acid (0.4-2.0) Calcium 8.8 (8.4-10.2) mg/dL Total Bilirubin 1.20 (0.2-1.3) mg/dL AST 28 (17-59) U/L ALT 16 (0-50) U/L Alkaline Phosphatase 82 (38-126) U/L Troponin I < 0.012 (0.000-0.034) ng/mL NT-Pro-B Natriuret Pep 796 (<300) pg/mL Serum Total Protein 6.8 (6.3-8.2) g/dL Albumin 4.1 (3.5-5.0) g/dL Urine Color (Yellow) Urine Appearance (Clear) Urine pH (4.6-8.0) Ur Specific Crooks (1.005-1.030) Urine Protein (Negative) Urine Glucose (UA) (Negative) mg/dL Urine Ketones (Negative) Urine Blood (Negative) Urine Nitrite (Negative) Urine Bilirubin (Negative) Urine Urobilinogen (0.2) mg/dL Ur Leukocyte Esterase (Negative) U Hyaline Cast (Auto) (0-2) /LPF Urine Microscopic RBC (0-5) /HPF Urine Microscopic WBC (0-5) /HPF Ur Epithelial Cells (None Seen) /HPF Urine Bacteria (None Seen) /HPF Urine Culture Reflexed (NO) Salicylates (2-20) mg/dL Urine Opiates Level (NEGATIVE) Ur Methadone (NEGATIVE) Acetaminophen (10-30) ug/ml Urine Barbiturates (NEGATIVE) Ur Phencyclidine (PCP) (NEGATIVE) Urine Amphetamine (NEGATIVE) U Benzodiazepine Level (NEGATIVE) Urine Cocaine (NEGATIVE) Urine Marijuana (THC) (NEGATIVE) Ethyl Alcohol (0-10) mg/dL Influenza Type A Ag (NEGATIVE) Influenza Type B Ag (NEGATIVE) RSV (PCR) (NEGATIVE) SARS-CoV-2 (PCR) (NEGATIVE) 10/09/23 10/09/23 10/09/23 Range/Units 19:28 19:28 19:33 WBC (4.0-10.5) x10^3/uL RBC (4.1-5.6) x10^6/uL Hgb (12.5-18.0) g/dL Hct (42-50) % MCV (78-100) fL MCH (26-32) pg MCHC (32-36) g/dL RDW (11.5-14.0) % Plt Count (150-450) x10^3/uL MPV (7.5-11.0) fL Gran % (36.0-66.0) % Immature Gran % (Auto) (0.00-0.4) % Nucleat RBC Rel Count (0.00-0.1) % Eos # (Auto) (0-0.5) x10^3/uL Immature Gran # (Auto) (0.00-0.03) x10^3u/L Absolute Lymphs (auto) (1.0-4.6) x10^3/uL Absolute Monos (auto) (0.0-1.3) x10^3/uL Absolute Nucleated RBC (0.00-0.01) x10^3u/L Lymphocytes % (24.0-44.0) % Monocytes % (0.0-12.0) % Eosinophils % (0.00-5.0) % Basophils % (0.0-0.4) % Absolute Granulocytes (1.4-6.9) x10^3/uL Basophils # (0-0.4) x10^3/uL pO2/FiO2 Ratio % VBG pH (7.32-7.42) VBG pCO2 at Pat Temp (42-55) mm/Hg VBG pO2 at Pat Temp (25-40) mm/Hg VBG HCO3 (22-28) meq/L VBG O2 Sat (Christel) (95-100) VBG Base Excess (-2.0-2.0) VBG Hemoglobin VBG Carboxyhemoglobin (0.0-6.9) % T HGB POC Potassium (3.5-5.1) Sodium (135-145) mmol/L Potassium (3.5-5.1) mmol/L Chloride (98-107) mmol/L Carbon Dioxide (22-30) mmol/L Anion Gap (5-15) MEQ/L BUN (9-20) mg/dL Creatinine (0.66-1.25) mg/dL Estimated GFR ML/MIN Glucose (74-106) mg/dL POC Glucometer (74 to 106) mg/dL Lactic Acid 2.7 H (0.4-2.0) Calcium (8.4-10.2) mg/dL Total Bilirubin (0.2-1.3) mg/dL AST (17-59) U/L ALT (0-50) U/L Alkaline Phosphatase (38-126) U/L Troponin I (0.000-0.034) ng/mL NT-Pro-B Natriuret Pep (<300) pg/mL Serum Total Protein (6.3-8.2) g/dL Albumin (3.5-5.0) g/dL Urine Color Yellow (Yellow) Urine Appearance Clear (Clear) Urine pH 5.5 (4.6-8.0) Ur Specific Crooks 1.020 (1.005-1.030) Urine Protein Negative (Negative) Urine Glucose (UA) >=1000 A (Negative) mg/dL Urine Ketones Negative (Negative) Urine Blood Negative (Negative) Urine Nitrite Negative (Negative) Urine Bilirubin Negative (Negative) Urine Urobilinogen 1.0 A (0.2) mg/dL Ur Leukocyte Esterase Negative (Negative) U Hyaline Cast (Auto) 3-5 A (0-2) /LPF Urine Microscopic RBC 0-2 (0-5) /HPF Urine Microscopic WBC 3-5 (0-5) /HPF Ur Epithelial Cells None Seen (None Seen) /HPF Urine Bacteria None Seen (None Seen) /HPF Urine Culture Reflexed NO (NO) Salicylates (2-20) mg/dL Urine Opiates Level NEGATIVE (NEGATIVE) Ur Methadone NEGATIVE (NEGATIVE) Acetaminophen (10-30) ug/ml Urine Barbiturates NEGATIVE (NEGATIVE) Ur Phencyclidine (PCP) NEGATIVE (NEGATIVE) Urine Amphetamine NEGATIVE (NEGATIVE) U Benzodiazepine Level NEGATIVE (NEGATIVE) Urine Cocaine NEGATIVE (NEGATIVE) Urine Marijuana (THC) NEGATIVE (NEGATIVE) Ethyl Alcohol (0-10) mg/dL Influenza Type A Ag (NEGATIVE) Influenza Type B Ag (NEGATIVE) RSV (PCR) (NEGATIVE) SARS-CoV-2 (PCR) (NEGATIVE) 10/09/23 10/09/23 10/09/23 Range/Units 19:33 19:47 20:38 WBC (4.0-10.5) x10^3/uL RBC (4.1-5.6) x10^6/uL Hgb (12.5-18.0) g/dL Hct (42-50) % MCV (78-100) fL MCH (26-32) pg MCHC (32-36) g/dL RDW (11.5-14.0) % Plt Count (150-450) x10^3/uL MPV (7.5-11.0) fL Gran % (36.0-66.0) % Immature Gran % (Auto) (0.00-0.4) % Nucleat RBC Rel Count (0.00-0.1) % Eos # (Auto) (0-0.5) x10^3/uL Immature Gran # (Auto) (0.00-0.03) x10^3u/L Absolute Lymphs (auto) (1.0-4.6) x10^3/uL Absolute Monos (auto) (0.0-1.3) x10^3/uL Absolute Nucleated RBC (0.00-0.01) x10^3u/L Lymphocytes % (24.0-44.0) % Monocytes % (0.0-12.0) % Eosinophils % (0.00-5.0) % Basophils % (0.0-0.4) % Absolute Granulocytes (1.4-6.9) x10^3/uL Basophils # (0-0.4) x10^3/uL pO2/FiO2 Ratio 36.0 % VBG pH 7.44 H (7.32-7.42) VBG pCO2 at Pat Temp 50 (42-55) mm/Hg VBG pO2 at Pat Temp 51 H (25-40) mm/Hg VBG HCO3 34.0 H* (22-28) meq/L VBG O2 Sat (Christel) 80.3 L (95-100) VBG Base Excess 8.4 H (-2.0-2.0) VBG Hemoglobin 12.7 VBG Carboxyhemoglobin 4.1 (0.0-6.9) % T HGB POC Potassium 3.2 L (3.5-5.1) Sodium (135-145) mmol/L Potassium (3.5-5.1) mmol/L Chloride (98-107) mmol/L Carbon Dioxide (22-30) mmol/L Anion Gap (5-15) MEQ/L BUN (9-20) mg/dL Creatinine (0.66-1.25) mg/dL Estimated GFR ML/MIN Glucose (74-106) mg/dL POC Glucometer 116 H 118 H (74 to 106) mg/dL Lactic Acid (0.4-2.0) Calcium (8.4-10.2) mg/dL Total Bilirubin (0.2-1.3) mg/dL AST (17-59) U/L ALT (0-50) U/L Alkaline Phosphatase (38-126) U/L Troponin I (0.000-0.034) ng/mL NT-Pro-B Natriuret Pep (<300) pg/mL Serum Total Protein (6.3-8.2) g/dL Albumin (3.5-5.0) g/dL Urine Color (Yellow) Urine Appearance (Clear) Urine pH (4.6-8.0) Ur Specific Crooks (1.005-1.030) Urine Protein (Negative) Urine Glucose (UA) (Negative) mg/dL Urine Ketones (Negative) Urine Blood (Negative) Urine Nitrite (Negative) Urine Bilirubin (Negative) Urine Urobilinogen (0.2) mg/dL Ur Leukocyte Esterase (Negative) U Hyaline Cast (Auto) (0-2) /LPF Urine Microscopic RBC (0-5) /HPF Urine Microscopic WBC (0-5) /HPF Ur Epithelial Cells (None Seen) /HPF Urine Bacteria (None Seen) /HPF Urine Culture Reflexed (NO) Salicylates (2-20) mg/dL Urine Opiates Level (NEGATIVE) Ur Methadone (NEGATIVE) Acetaminophen (10-30) ug/ml Urine Barbiturates (NEGATIVE) Ur Phencyclidine (PCP) (NEGATIVE) Urine Amphetamine (NEGATIVE) U Benzodiazepine Level (NEGATIVE) Urine Cocaine (NEGATIVE) Urine Marijuana (THC) (NEGATIVE) Ethyl Alcohol (0-10) mg/dL Influenza Type A Ag (NEGATIVE) Influenza Type B Ag (NEGATIVE) RSV (PCR) (NEGATIVE) SARS-CoV-2 (PCR) (NEGATIVE) 10/09/23 10/09/23 10/09/23 Range/Units 21:25 21:37 21:52 WBC (4.0-10.5) x10^3/uL RBC (4.1-5.6) x10^6/uL Hgb (12.5-18.0) g/dL Hct (42-50) % MCV (78-100) fL MCH (26-32) pg MCHC (32-36) g/dL RDW (11.5-14.0) % Plt Count (150-450) x10^3/uL MPV (7.5-11.0) fL Gran % (36.0-66.0) % Immature Gran % (Auto) (0.00-0.4) % Nucleat RBC Rel Count (0.00-0.1) % Eos # (Auto) (0-0.5) x10^3/uL Immature Gran # (Auto) (0.00-0.03) x10^3u/L Absolute Lymphs (auto) (1.0-4.6) x10^3/uL Absolute Monos (auto) (0.0-1.3) x10^3/uL Absolute Nucleated RBC (0.00-0.01) x10^3u/L Lymphocytes % (24.0-44.0) % Monocytes % (0.0-12.0) % Eosinophils % (0.00-5.0) % Basophils % (0.0-0.4) % Absolute Granulocytes (1.4-6.9) x10^3/uL Basophils # (0-0.4) x10^3/uL pO2/FiO2 Ratio % VBG pH (7.32-7.42) VBG pCO2 at Pat Temp (42-55) mm/Hg VBG pO2 at Pat Temp (25-40) mm/Hg VBG HCO3 (22-28) meq/L VBG O2 Sat (Christel) (95-100) VBG Base Excess (-2.0-2.0) VBG Hemoglobin VBG Carboxyhemoglobin (0.0-6.9) % T HGB POC Potassium (3.5-5.1) Sodium (135-145) mmol/L Potassium (3.5-5.1) mmol/L Chloride (98-107) mmol/L Carbon Dioxide (22-30) mmol/L Anion Gap (5-15) MEQ/L BUN (9-20) mg/dL Creatinine (0.66-1.25) mg/dL Estimated GFR ML/MIN Glucose (74-106) mg/dL POC Glucometer 150 H (74 to 106) mg/dL Lactic Acid 2.6 H (0.4-2.0) Calcium (8.4-10.2) mg/dL Total Bilirubin (0.2-1.3) mg/dL AST (17-59) U/L ALT (0-50) U/L Alkaline Phosphatase (38-126) U/L Troponin I < 0.012 (0.000-0.034) ng/mL NT-Pro-B Natriuret Pep (<300) pg/mL Serum Total Protein (6.3-8.2) g/dL Albumin (3.5-5.0) g/dL Urine Color (Yellow) Urine Appearance (Clear) Urine pH (4.6-8.0) Ur Specific Crooks (1.005-1.030) Urine Protein (Negative) Urine Glucose (UA) (Negative) mg/dL Urine Ketones (Negative) Urine Blood (Negative) Urine Nitrite (Negative) Urine Bilirubin (Negative) Urine Urobilinogen (0.2) mg/dL Ur Leukocyte Esterase (Negative) U Hyaline Cast (Auto) (0-2) /LPF Urine Microscopic RBC (0-5) /HPF Urine Microscopic WBC (0-5) /HPF Ur Epithelial Cells (None Seen) /HPF Urine Bacteria (None Seen) /HPF Urine Culture Reflexed (NO) Salicylates (2-20) mg/dL Urine Opiates Level (NEGATIVE) Ur Methadone (NEGATIVE) Acetaminophen (10-30) ug/ml Urine Barbiturates (NEGATIVE) Ur Phencyclidine (PCP) (NEGATIVE) Urine Amphetamine (NEGATIVE) U Benzodiazepine Level (NEGATIVE) Urine Cocaine (NEGATIVE) Urine Marijuana (THC) (NEGATIVE) Ethyl Alcohol (0-10) mg/dL Influenza Type A Ag (NEGATIVE) Influenza Type B Ag (NEGATIVE) RSV (PCR) (NEGATIVE) SARS-CoV-2 (PCR) (NEGATIVE) 10/09/23 10/09/23 Range/Units 23:11 23:55 WBC (4.0-10.5) x10^3/uL RBC (4.1-5.6) x10^6/uL Hgb (12.5-18.0) g/dL Hct (42-50) % MCV (78-100) fL MCH (26-32) pg MCHC (32-36) g/dL RDW (11.5-14.0) % Plt Count (150-450) x10^3/uL MPV (7.5-11.0) fL Gran % (36.0-66.0) % Immature Gran % (Auto) (0.00-0.4) % Nucleat RBC Rel Count (0.00-0.1) % Eos # (Auto) (0-0.5) x10^3/uL Immature Gran # (Auto) (0.00-0.03) x10^3u/L Absolute Lymphs (auto) (1.0-4.6) x10^3/uL Absolute Monos (auto) (0.0-1.3) x10^3/uL Absolute Nucleated RBC (0.00-0.01) x10^3u/L Lymphocytes % (24.0-44.0) % Monocytes % (0.0-12.0) % Eosinophils % (0.00-5.0) % Basophils % (0.0-0.4) % Absolute Granulocytes (1.4-6.9) x10^3/uL Basophils # (0-0.4) x10^3/uL pO2/FiO2 Ratio % VBG pH (7.32-7.42) VBG pCO2 at Pat Temp (42-55) mm/Hg VBG pO2 at Pat Temp (25-40) mm/Hg VBG HCO3 (22-28) meq/L VBG O2 Sat (Christel) (95-100) VBG Base Excess (-2.0-2.0) VBG Hemoglobin VBG Carboxyhemoglobin (0.0-6.9) % T HGB POC Potassium (3.5-5.1) Sodium (135-145) mmol/L Potassium (3.5-5.1) mmol/L Chloride (98-107) mmol/L Carbon Dioxide (22-30) mmol/L Anion Gap (5-15) MEQ/L BUN (9-20) mg/dL Creatinine (0.66-1.25) mg/dL Estimated GFR ML/MIN Glucose (74-106) mg/dL POC Glucometer 147 H 204 H (74 to 106) mg/dL Lactic Acid (0.4-2.0) Calcium (8.4-10.2) mg/dL Total Bilirubin (0.2-1.3) mg/dL AST (17-59) U/L ALT (0-50) U/L Alkaline Phosphatase (38-126) U/L Troponin I (0.000-0.034) ng/mL NT-Pro-B Natriuret Pep (<300) pg/mL Serum Total Protein (6.3-8.2) g/dL Albumin (3.5-5.0) g/dL Urine Color (Yellow) Urine Appearance (Clear) Urine pH (4.6-8.0) Ur Specific Crooks (1.005-1.030) Urine Protein (Negative) Urine Glucose (UA) (Negative) mg/dL Urine Ketones (Negative) Urine Blood (Negative) Urine Nitrite (Negative) Urine Bilirubin (Negative) Urine Urobilinogen (0.2) mg/dL Ur Leukocyte Esterase (Negative) U Hyaline Cast (Auto) (0-2) /LPF Urine Microscopic RBC (0-5) /HPF Urine Microscopic WBC (0-5) /HPF Ur Epithelial Cells (None Seen) /HPF Urine Bacteria (None Seen) /HPF Urine Culture Reflexed (NO) Salicylates (2-20) mg/dL Urine Opiates Level (NEGATIVE) Ur Methadone (NEGATIVE) Acetaminophen (10-30) ug/ml Urine Barbiturates (NEGATIVE) Ur Phencyclidine (PCP) (NEGATIVE) Urine Amphetamine (NEGATIVE) U Benzodiazepine Level (NEGATIVE) Urine Cocaine (NEGATIVE) Urine Marijuana (THC) (NEGATIVE) Ethyl Alcohol (0-10) mg/dL Influenza Type A Ag (NEGATIVE) Influenza Type B Ag (NEGATIVE) RSV (PCR) (NEGATIVE) SARS-CoV-2 (PCR) (NEGATIVE) - Radiology Impressions Radiology Exams & Impressions: Radiology Procedures Category Date Time Status CHEST 1 VIEW (PORTABLE) Stat Exams 10/09/23 19:10 Taken HEAD WITHOUT CONTRAST [CT] Stat Exams 10/09/23 19:10 Taken Assessment/Plan (1) Hypoglycemia Current Visit: Yes Status: Acute Assessment & Plan: Likely from medications with poor PO intake 1. Hold Trulicity/Jardiance 2. FSBS qAC/HS 3. Glucose prn Code(s): E16.2 - HYPOGLYCEMIA, UNSPECIFIED (2) Acute kidney injury Current Visit: Yes Status: Acute Assessment & Plan: NED on CKD likely from prerenal azotemia 1. IVFs 2. Hold SGLT2 3. Check urine lytes, urine creatinine 4. Renal u/s 5. Follow I/Os 6. Watch electrolytes, creatinine closely Code(s): N17.9 - ACUTE KIDNEY FAILURE, UNSPECIFIED (3) Hypertensive chronic kidney disease with stage 1 through stage 4 chronic kidney disease, or unspecified chronic kidney disease Current Visit: Yes Status: Acute Assessment & Plan: Blood pressure under reasonable control on Metoprolol/Lisinopril 1. Continue bp meds 2. Low Na diet 3. Monitor blood pressure readings Code(s): I12.9 - HYPERTENSIVE CHRONIC KIDNEY DISEASE W STG 1-4/UNSP CHR KDNY (4) Type 2 diabetes mellitus with diabetic chronic kidney disease Current Visit: Yes Status: Acute Qualifiers: Diabetes mellitus long term acute care registered nurse insulin use: with senior living use Chronic kidney disease stage: stage 3 (moderate) Chronic kidney disease stage 3 subtype: stage 3b (GFR 30-44) Qualified Code(s): E11.22 - Type 2 diabetes mellitus with diabetic chronic kidney disease; N18.32 - Chronic kidney disease, stage 3b; Z79.4 - long term acute care registered nurse (current) use of insulin Code(s): E11.22 - TYPE 2 DIABETES MELLITUS W DIABETIC CHRONIC KIDNEY DISEASE (5) Hypokalemia Current Visit: Yes Status: Acute Code(s): E87.6 - HYPOKALEMIA Telemedicine Encounter - Telemedicine Encounter Telemedicine Encounter: The entirety of this encounter was performed via Telemedicine"
[2023-10-10] MEDS ORDERED: TYLENOL 325 MG PO PRN ×2 (00:33→07:47)
[2023-10-10] MEDS: Dextrose 5% -0.45 NaCl 1000 ML 1,000 ML IV SCH (01:25)
[2023-10-10 03:16] LABS: Absolute Neutrophil Ct (ANC) 4.28 x10^3/uL (1.4-6.9); BASOPHIL % 0.7 % (0.0-0.4); Basophil (Absolute #) 0.04 x10^3/uL (0-0.4); Eosinophil % 1.2 % (0.00-5.0); Eosinophil (Absolute #) 0.07 x10^3/uL (0-0.5); Hematocrit 41.4 % (42-50); Hemoglobin 12.1 g/dL (12.5-18.0); IMMATURE GRAN # 0.02 x10^3u/L (0.00-0.03); IMMATURE GRAN % 0.3 % (0.00-0.4); Lymphocyte (Absolute #) 0.91 x10^3/uL (1.0-4.6); Lymphocytes % 15.3 % (24.0-44.0); Mean Cell Volume 94.7 fL (78-100); Mean Corpuscular Hemoglobin 27.7 pg (26-32); Mean Corpuscular Hgb Concent. 29.2 g/dL (32-36); Mean Platelet Volume 10.7 fL (7.5-11.0); Monocyte (Absolute #) 0.62 x10^3/uL (0.0-1.3); Monocytes % 10.4 % (0.0-12.0); Neutrophil % 72.1 % (36.0-66.0); Platelet Count 101 x10^3/uL (150-450); Red Blood Count 4.37 x10^6/uL (4.1-5.6); Red Cell Distribution Width 15.1 % (11.5-14.0); White Blood Count 5.9 x10^3/uL (4.0-10.5)
[2023-10-10 03:29] LABS: ANION GAP 11.8 MEQ/L (5-15); BILIRUBIN,TOTAL 1.1 mg/dL (0.2-1.3); Calcium 8.7 mg/dL (8.4-10.2); Creatinine 1 1.75 mg/dL (0.66-1.25); EST GLOMERULAR FILTRATION RATE 42.9 ML/MIN; Total Protein 6.7 g/dL (6.3-8.2)
--- NOTE | 2023-10-10 08:33 | XRAY ---
Indication: Unresponsive. Multiple contiguous axial images obtained through the head without contrast. Comparison: None Age-appropriate global atrophy and mild periventricular degenerative micro-ischemia bilaterally. No acute intracranial hemorrhage, abnormal extra-axial fluid collection, or mass effect. Fourth ventricle is midline without hydrocephalus. Bony calvarium is intact. Visualized paranasal sinuses and mastoid air cells are clear. Impression: Nonacute senile brain.
--- NOTE | 2023-10-10 08:33 | XRAY ---
Indication: Pneumonia. Unresponsive. Comparison: None Portable chest mildly underinflated accentuating cardiopulmonary structures. No focal infiltrate, consolidation, or large effusion. Heart not enlarged with CABG. Bony thorax intact with osteopenia and minimal degenerative changes. Impression: Nonacute underinflated chest with chronic features.
[2023-10-10] MEDS ORDERED: Toprol-Xl 25MG Tablets PO SCH (10:00)
[2023-10-10] MEDS ORDERED: NON-FORMULARY ITEM (Lisinopril [Lisinopril] 40 MG Tablet) PO SCH (10:00)
[2023-10-10] MEDS ORDERED: BABY ASPIRIN 81 MG CHEW PO SCH (10:00)
[2023-10-10] MEDS ORDERED: Zetia 10 MG PO SCH (10:00)
[2023-10-10] MEDS ORDERED: PIOGLITAZONE HCL 45 MG PO SCH (10:00)
[2023-10-10] MEDS ORDERED: Zestril 20 MG PO SCH (10:00)
[2023-10-10] MEDS ORDERED: POTASSIUM CHLORIDE 8 MEQ PO SCH (10:00)
--- NOTE | 2023-10-10 10:01 | XRAY ---
Indication: Acute kidney injury. Two-dimensional renal sonogram performed. Comparison: None Both kidneys are normal in reniform shape with normal color perfusion. Right kidney measures 10.5 x 5.8 x 6.2 cm and left measures 11.4 x 6.6 x 6.1 cm. No focal solid/cystic renal mass or hydronephrosis. Cortical medullary differentiation preserved. Near empty urinary bladder is grossly unremarkable. Normal bilateral ureteral jets. Impression: Negative renal sonogram.
[2023-10-10] MEDS: Protonix 40MG Tablet PO SCH (10:20)
[2023-10-10] MEDS: ECOTRIN 81 MG PO SCH (10:20)
[2023-10-10] MEDS: Toprol-Xl 25MG Tablets PO SCH (10:20)
[2023-10-10] MEDS: PLAVIX Tablet PO SCH (10:21)
[2023-10-10] MEDS: Klor Con PO SCH (10:21)
[2023-10-10] MEDS: ENOXAPARIN SODIUM SQ SCH (10:22)
[2023-10-10] MEDS: Actos 30 MG PO SCH (10:22)
[2023-10-10] MEDS: Zetia 10 MG PO SCH (10:24)
[2023-10-10] MEDS: Zestril 20 MG PO SCH (10:28)
--- NOTE | 2023-10-10 11:48 | PCM.NOTE ---
Date and Time: 10/10/23 1140 Subjective Assessment: Mr. RAM is a 63 year old male with a past medical history significant for hypertension, diabetes, and hyperlipdemia. He was brought to the hospital on 10/08 with altered mental status attributed to marked hypoglycemia. He had given himself his usual insulin shot and then went to a function where he was c onfused. Blood sugars were in the 20-30s, so he was given multiple doses of glucose to raise his sugars. He admits to usually only eating 1 meal per day. Nutrition consulted for education of proper eating with type II DM dx and insulin. There was a med error in ER and sodium bicarb amps were given. Pt has had no adverse reaction from this. He was in ICU and can be moved out to a med surg bed today. Platelets are low at 101 and pt states no prior hx. He has been getting IVF and may be related. Will need Op f/u with PCP. Hypokalemia resolved. Continues to have NED with no prior hx per pt. No old labs to review. Renal US showed no concerning findings. Continue to hold trulicity and jardiance. He has had no further episodes since admission. He denies CP, Abd. pain, N/V/D. - Review of Systems Constitutional: No Fever, No Chills Eyes: No Symptoms Ears, Nose, & Throat: No Symptoms Respiratory: No Cough, No Short Of Breath Cardiac: No Chest Pain, No Edema, No Syncope Abdominal/Gastrointestinal: No Abdominal Pain, No Nausea, No Vomiting, No Diarrhea Genitourinary Symptoms: No Dysuria Musculoskeletal: No Back Pain, No Neck Pain Skin: No Rash Neurological: No Dizziness, No Focal Weakness, No Sensory Changes Psychological: No Symptoms Endocrine: No Symptoms Hematologic/Lymphatic: No Symptoms Immunological/Allergic: No Symptoms Objective Exam General Appearance: no apparent distress, alert Neurologic Exam: alert, oriented x 3, cooperative, normal mood/affect, nml cerebellar function, sensation nml, No motor deficits Skin Exam: normal color, warm, dry Eye Exam: PERRL, EOMI, eyes nml inspection Ears, Nose, Throat Exam: normal ENT inspection, pharynx normal, moist mucous membranes Neck Exam: normal inspection, non-tender, supple, full range of motion Respiratory Exam: normal breath sounds, lungs clear, No respiratory distress Cardiovascular Exam: regular rate/rhythm, normal heart sounds Gastrointestinal/Abdomen Exam: soft, No tenderness, No mass Extremity Exam: normal inspection, normal range of motion Back Exam: normal inspection, normal range of motion, No CVA tenderness, No vertebral tenderness Male Genitalia Exam: deferred Rectal Exam: deferred Objective Data Vital Signs: Vital Signs - 24 hr Temp Pulse Resp BP BP Pulse Ox 10/10/23 08:17 99.1 F 10/10/23 08:00 75 10/10/23 07:56 99.1 F 77 16 107/55 95 10/10/23 04:40 99.1 F 70 15 123/57 98 10/10/23 04:00 84 10/10/23 00:27 98.4 F 73 19 113/51 100 10/09/23 23:35 76 20 97 10/09/23 23:22 96 10/09/23 23:00 72 2 L 136/50 97 10/09/23 22:31 73 6 L 144/59 97 10/09/23 22:00 97.2 F 79 14 159/62 96 10/09/23 21:30 97.2 F 79 15 117/66 97 10/09/23 21:02 18 99 10/09/23 21:01 96.4 F 77 14 123/69 96 10/09/23 20:31 71 15 148/66 100 10/09/23 20:30 16 100 10/09/23 20:00 72 19 146/72 100 10/09/23 19:38 73 16 142/102 98 10/09/23 19:25 83 22 112/69 98 10/09/23 19:21 106/48 10/09/23 19:20 85 15 116/60 100 10/09/23 19:10 78 16 150/78 90 L 10/09/23 19:00 78 20 150/112 92 L Pain Assessment - Last Documented Pain Intensity 0 Intake and Output: Intake & Output 10/07/23 10/08/23 10/09/23 10/10/23 10:59 11:59 11:59 11:59 Intake Total 1027 Output Total 2300 Balance -1273 Weight 103.6 kg Lab Results: Lab Results-Last 24 Hours 10/09/23 10/09/23 10/09/23 Range/Units 19:09 19:20 19:20 WBC 7.0 (4.0-10.5) x10^3/uL RBC 4.47 (4.1-5.6) x10^6/uL Hgb 12.4 L (12.5-18.0) g/dL Hct 42.0 (42-50) % MCV 94.0 (78-100) fL MCH 27.7 (26-32) pg MCHC 29.5 L (32-36) g/dL RDW 15.2 H (11.5-14.0) % Plt Count 113 L (150-450) x10^3/uL MPV 11.0 (7.5-11.0) fL Gran % 55.3 (36.0-66.0) % Immature Gran % (Auto) 0.4 (0.00-0.4) % Nucleat RBC Rel Count 0.0 (0.00-0.1) % Eos # (Auto) 0.20 (0-0.5) x10^3/uL Immature Gran # (Auto) 0.03 (0.00-0.03) x10^3u/L Absolute Lymphs (auto) 2.15 (1.0-4.6) x10^3/uL Absolute Monos (auto) 0.70 (0.0-1.3) x10^3/uL Absolute Nucleated RBC 0.00 (0.00-0.01) x10^3u/L Lymphocytes % 30.7 (24.0-44.0) % Monocytes % 10.0 (0.0-12.0) % Eosinophils % 2.9 (0.00-5.0) % Basophils % 0.7 (0.0-0.4) % Absolute Granulocytes 3.88 (1.4-6.9) x10^3/uL Basophils # 0.05 (0-0.4) x10^3/uL pO2/FiO2 Ratio % VBG pH (7.32-7.42) VBG pCO2 at Pat Temp (42-55) mm/Hg VBG pO2 at Pat Temp (25-40) mm/Hg VBG HCO3 (22-28) meq/L VBG O2 Sat (Christel) (95-100) VBG Base Excess (-2.0-2.0) VBG Hemoglobin VBG Carboxyhemoglobin (0.0-6.9) % T HGB POC Potassium (3.5-5.1) Sodium (135-145) mmol/L Potassium (3.5-5.1) mmol/L Chloride (98-107) mmol/L Carbon Dioxide (22-30) mmol/L Anion Gap (5-15) MEQ/L BUN (9-20) mg/dL Creatinine (0.66-1.25) mg/dL Estimated GFR ML/MIN Glucose (74-106) mg/dL POC Glucometer (74 to 106) mg/dL Hemoglobin A1c (4.5-6.0) % Lactic Acid (0.4-2.0) Calcium (8.4-10.2) mg/dL Total Bilirubin (0.2-1.3) mg/dL AST (17-59) U/L ALT (0-50) U/L Alkaline Phosphatase (38-126) U/L Troponin I (0.000-0.034) ng/mL NT-Pro-B Natriuret Pep (<300) pg/mL Serum Total Protein (6.3-8.2) g/dL Albumin (3.5-5.0) g/dL Urine Color (Yellow) Urine Appearance (Clear) Urine pH (4.6-8.0) Ur Specific Ward (1.005-1.030) Urine Protein (Negative) Urine Glucose (UA) (Negative) mg/dL Urine Ketones (Negative) Urine Blood (Negative) Urine Nitrite (Negative) Urine Bilirubin (Negative) Urine Urobilinogen (0.2) mg/dL Ur Leukocyte Esterase (Negative) U Hyaline Cast (Auto) (0-2) /LPF Urine Microscopic RBC (0-5) /HPF Urine Microscopic WBC (0-5) /HPF Ur Epithelial Cells (None Seen) /HPF Urine Bacteria (None Seen) /HPF Urine Culture Reflexed (NO) Ur Random Creatinine MG/DL Urine Sodium (30-90) mmol/L Salicylates < 1.0 L (2-20) mg/dL Urine Opiates Level (NEGATIVE) Ur Methadone (NEGATIVE) Acetaminophen < 10 L (10-30) ug/ml Urine Barbiturates (NEGATIVE) Ur Phencyclidine (PCP) (NEGATIVE) Urine Amphetamine (NEGATIVE) U Benzodiazepine Level (NEGATIVE) Urine Cocaine (NEGATIVE) Urine Marijuana (THC) (NEGATIVE) Ethyl Alcohol < 10 (0-10) mg/dL Influenza Type A Ag NEGATIVE (NEGATIVE) Influenza Type B Ag NEGATIVE (NEGATIVE) RSV (PCR) NEGATIVE (NEGATIVE) SARS-CoV-2 (PCR) NEGATIVE (NEGATIVE) 10/09/23 10/09/23 10/09/23 Range/Units 19:23 19:23 19:24 WBC (4.0-10.5) x10^3/uL RBC (4.1-5.6) x10^6/uL Hgb (12.5-18.0) g/dL Hct (42-50) % MCV (78-100) fL MCH (26-32) pg MCHC (32-36) g/dL RDW (11.5-14.0) % Plt Count (150-450) x10^3/uL MPV (7.5-11.0) fL Gran % (36.0-66.0) % Immature Gran % (Auto) (0.00-0.4) % Nucleat RBC Rel Count (0.00-0.1) % Eos # (Auto) (0-0.5) x10^3/uL Immature Gran # (Auto) (0.00-0.03) x10^3u/L Absolute Lymphs (auto) (1.0-4.6) x10^3/uL Absolute Monos (auto) (0.0-1.3) x10^3/uL Absolute Nucleated RBC (0.00-0.01) x10^3u/L Lymphocytes % (24.0-44.0) % Monocytes % (0.0-12.0) % Eosinophils % (0.00-5.0) % Basophils % (0.0-0.4) % Absolute Granulocytes (1.4-6.9) x10^3/uL Basophils # (0-0.4) x10^3/uL pO2/FiO2 Ratio % VBG pH (7.32-7.42) VBG pCO2 at Pat Temp (42-55) mm/Hg VBG pO2 at Pat Temp (25-40) mm/Hg VBG HCO3 (22-28) meq/L VBG O2 Sat (Christel) (95-100) VBG Base Excess (-2.0-2.0) VBG Hemoglobin VBG Carboxyhemoglobin (0.0-6.9) % T HGB POC Potassium (3.5-5.1) Sodium 141 (135-145) mmol/L Potassium 3.2 L (3.5-5.1) mmol/L Chloride 103 (98-107) mmol/L Carbon Dioxide 29 (22-30) mmol/L Anion Gap 12.6 (5-15) MEQ/L BUN 27 H (9-20) mg/dL Creatinine 1.70 H (0.66-1.25) mg/dL Estimated GFR 44.5 ML/MIN Glucose 145 H (74-106) mg/dL POC Glucometer 117 H (74 to 106) mg/dL Hemoglobin A1c (4.5-6.0) % Lactic Acid (0.4-2.0) Calcium 8.8 (8.4-10.2) mg/dL Total Bilirubin 1.20 (0.2-1.3) mg/dL AST 28 (17-59) U/L ALT 16 (0-50) U/L Alkaline Phosphatase 82 (38-126) U/L Troponin I < 0.012 (0.000-0.034) ng/mL NT-Pro-B Natriuret Pep 796 (<300) pg/mL Serum Total Protein 6.8 (6.3-8.2) g/dL Albumin 4.1 (3.5-5.0) g/dL Urine Color (Yellow) Urine Appearance (Clear) Urine pH (4.6-8.0) Ur Specific Ward (1.005-1.030) Urine Protein (Negative) Urine Glucose (UA) (Negative) mg/dL Urine Ketones (Negative) Urine Blood (Negative) Urine Nitrite (Negative) Urine Bilirubin (Negative) Urine Urobilinogen (0.2) mg/dL Ur Leukocyte Esterase (Negative) U Hyaline Cast (Auto) (0-2) /LPF Urine Microscopic RBC (0-5) /HPF Urine Microscopic WBC (0-5) /HPF Ur Epithelial Cells (None Seen) /HPF Urine Bacteria (None Seen) /HPF Urine Culture Reflexed (NO) Ur Random Creatinine MG/DL Urine Sodium (30-90) mmol/L Salicylates (2-20) mg/dL Urine Opiates Level (NEGATIVE) Ur Methadone (NEGATIVE) Acetaminophen (10-30) ug/ml Urine Barbiturates (NEGATIVE) Ur Phencyclidine (PCP) (NEGATIVE) Urine Amphetamine (NEGATIVE) U Benzodiazepine Level (NEGATIVE) Urine Cocaine (NEGATIVE) Urine Marijuana (THC) (NEGATIVE) Ethyl Alcohol (0-10) mg/dL Influenza Type A Ag (NEGATIVE) Influenza Type B Ag (NEGATIVE) RSV (PCR) (NEGATIVE) SARS-CoV-2 (PCR) (NEGATIVE) 10/09/23 10/09/23 10/09/23 Range/Units 19:28 19:28 19:33 WBC (4.0-10.5) x10^3/uL RBC (4.1-5.6) x10^6/uL Hgb (12.5-18.0) g/dL Hct (42-50) % MCV (78-100) fL MCH (26-32) pg MCHC (32-36) g/dL RDW (11.5-14.0) % Plt Count (150-450) x10^3/uL MPV (7.5-11.0) fL Gran % (36.0-66.0) % Immature Gran % (Auto) (0.00-0.4) % Nucleat RBC Rel Count (0.00-0.1) % Eos # (Auto) (0-0.5) x10^3/uL Immature Gran # (Auto) (0.00-0.03) x10^3u/L Absolute Lymphs (auto) (1.0-4.6) x10^3/uL Absolute Monos (auto) (0.0-1.3) x10^3/uL Absolute Nucleated RBC (0.00-0.01) x10^3u/L Lymphocytes % (24.0-44.0) % Monocytes % (0.0-12.0) % Eosinophils % (0.00-5.0) % Basophils % (0.0-0.4) % Absolute Granulocytes (1.4-6.9) x10^3/uL Basophils # (0-0.4) x10^3/uL pO2/FiO2 Ratio % VBG pH (7.32-7.42) VBG pCO2 at Pat Temp (42-55) mm/Hg VBG pO2 at Pat Temp (25-40) mm/Hg VBG HCO3 (22-28) meq/L VBG O2 Sat (Christel) (95-100) VBG Base Excess (-2.0-2.0) VBG Hemoglobin VBG Carboxyhemoglobin (0.0-6.9) % T HGB POC Potassium (3.5-5.1) Sodium (135-145) mmol/L Potassium (3.5-5.1) mmol/L Chloride (98-107) mmol/L Carbon Dioxide (22-30) mmol/L Anion Gap (5-15) MEQ/L BUN (9-20) mg/dL Creatinine (0.66-1.25) mg/dL Estimated GFR ML/MIN Glucose (74-106) mg/dL POC Glucometer (74 to 106) mg/dL Hemoglobin A1c (4.5-6.0) % Lactic Acid 2.7 H (0.4-2.0) Calcium (8.4-10.2) mg/dL Total Bilirubin (0.2-1.3) mg/dL AST (17-59) U/L ALT (0-50) U/L Alkaline Phosphatase (38-126) U/L Troponin I (0.000-0.034) ng/mL NT-Pro-B Natriuret Pep (<300) pg/mL Serum Total Protein (6.3-8.2) g/dL Albumin (3.5-5.0) g/dL Urine Color Yellow (Yellow) Urine Appearance Clear (Clear) Urine pH 5.5 (4.6-8.0) Ur Specific Ward 1.020 (1.005-1.030) Urine Protein Negative (Negative) Urine Glucose (UA) >=1000 A (Negative) mg/dL Urine Ketones Negative (Negative) Urine Blood Negative (Negative) Urine Nitrite Negative (Negative) Urine Bilirubin Negative (Negative) Urine Urobilinogen 1.0 A (0.2) mg/dL Ur Leukocyte Esterase Negative (Negative) U Hyaline Cast (Auto) 3-5 A (0-2) /LPF Urine Microscopic RBC 0-2 (0-5) /HPF Urine Microscopic WBC 3-5 (0-5) /HPF Ur Epithelial Cells None Seen (None Seen) /HPF Urine Bacteria None Seen (None Seen) /HPF Urine Culture Reflexed NO (NO) Ur Random Creatinine MG/DL Urine Sodium (30-90) mmol/L Salicylates (2-20) mg/dL Urine Opiates Level NEGATIVE (NEGATIVE) Ur Methadone NEGATIVE (NEGATIVE) Acetaminophen (10-30) ug/ml Urine Barbiturates NEGATIVE (NEGATIVE) Ur Phencyclidine (PCP) NEGATIVE (NEGATIVE) Urine Amphetamine NEGATIVE (NEGATIVE) U Benzodiazepine Level NEGATIVE (NEGATIVE) Urine Cocaine NEGATIVE (NEGATIVE) Urine Marijuana (THC) NEGATIVE (NEGATIVE) Ethyl Alcohol (0-10) mg/dL Influenza Type A Ag (NEGATIVE) Influenza Type B Ag (NEGATIVE) RSV (PCR) (NEGATIVE) SARS-CoV-2 (PCR) (NEGATIVE) 10/09/23 10/09/23 10/09/23 Range/Units 19:33 19:47 20:38 WBC (4.0-10.5) x10^3/uL RBC (4.1-5.6) x10^6/uL Hgb (12.5-18.0) g/dL Hct (42-50) % MCV (78-100) fL MCH (26-32) pg MCHC (32-36) g/dL RDW (11.5-14.0) % Plt Count (150-450) x10^3/uL MPV (7.5-11.0) fL Gran % (36.0-66.0) % Immature Gran % (Auto) (0.00-0.4) % Nucleat RBC Rel Count (0.00-0.1) % Eos # (Auto) (0-0.5) x10^3/uL Immature Gran # (Auto) (0.00-0.03) x10^3u/L Absolute Lymphs (auto) (1.0-4.6) x10^3/uL Absolute Monos (auto) (0.0-1.3) x10^3/uL Absolute Nucleated RBC (0.00-0.01) x10^3u/L Lymphocytes % (24.0-44.0) % Monocytes % (0.0-12.0) % Eosinophils % (0.00-5.0) % Basophils % (0.0-0.4) % Absolute Granulocytes (1.4-6.9) x10^3/uL Basophils # (0-0.4) x10^3/uL pO2/FiO2 Ratio 36.0 % VBG pH 7.44 H (7.32-7.42) VBG pCO2 at Pat Temp 50 (42-55) mm/Hg VBG pO2 at Pat Temp 51 H (25-40) mm/Hg VBG HCO3 34.0 H* (22-28) meq/L VBG O2 Sat (Christel) 80.3 L (95-100) VBG Base Excess 8.4 H (-2.0-2.0) VBG Hemoglobin 12.7 VBG Carboxyhemoglobin 4.1 (0.0-6.9) % T HGB POC Potassium 3.2 L (3.5-5.1) Sodium (135-145) mmol/L Potassium (3.5-5.1) mmol/L Chloride (98-107) mmol/L Carbon Dioxide (22-30) mmol/L Anion Gap (5-15) MEQ/L BUN (9-20) mg/dL Creatinine (0.66-1.25) mg/dL Estimated GFR ML/MIN Glucose (74-106) mg/dL POC Glucometer 116 H 118 H (74 to 106) mg/dL Hemoglobin A1c (4.5-6.0) % Lactic Acid (0.4-2.0) Calcium (8.4-10.2) mg/dL Total Bilirubin (0.2-1.3) mg/dL AST (17-59) U/L ALT (0-50) U/L Alkaline Phosphatase (38-126) U/L Troponin I (0.000-0.034) ng/mL NT-Pro-B Natriuret Pep (<300) pg/mL Serum Total Protein (6.3-8.2) g/dL Albumin (3.5-5.0) g/dL Urine Color (Yellow) Urine Appearance (Clear) Urine pH (4.6-8.0) Ur Specific Ward (1.005-1.030) Urine Protein (Negative) Urine Glucose (UA) (Negative) mg/dL Urine Ketones (Negative) Urine Blood (Negative) Urine Nitrite (Negative) Urine Bilirubin (Negative) Urine Urobilinogen (0.2) mg/dL Ur Leukocyte Esterase (Negative) U Hyaline Cast (Auto) (0-2) /LPF Urine Microscopic RBC (0-5) /HPF Urine Microscopic WBC (0-5) /HPF Ur Epithelial Cells (None Seen) /HPF Urine Bacteria (None Seen) /HPF Urine Culture Reflexed (NO) Ur Random Creatinine MG/DL Urine Sodium (30-90) mmol/L Salicylates (2-20) mg/dL Urine Opiates Level (NEGATIVE) Ur Methadone (NEGATIVE) Acetaminophen (10-30) ug/ml Urine Barbiturates (NEGATIVE) Ur Phencyclidine (PCP) (NEGATIVE) Urine Amphetamine (NEGATIVE) U Benzodiazepine Level (NEGATIVE) Urine Cocaine (NEGATIVE) Urine Marijuana (THC) (NEGATIVE) Ethyl Alcohol (0-10) mg/dL Influenza Type A Ag (NEGATIVE) Influenza Type B Ag (NEGATIVE) RSV (PCR) (NEGATIVE) SARS-CoV-2 (PCR) (NEGATIVE) 10/09/23 10/09/23 10/09/23 Range/Units 21:25 21:37 21:52 WBC (4.0-10.5) x10^3/uL RBC (4.1-5.6) x10^6/uL Hgb (12.5-18.0) g/dL Hct (42-50) % MCV (78-100) fL MCH (26-32) pg MCHC (32-36) g/dL RDW (11.5-14.0) % Plt Count (150-450) x10^3/uL MPV (7.5-11.0) fL Gran % (36.0-66.0) % Immature Gran % (Auto) (0.00-0.4) % Nucleat RBC Rel Count (0.00-0.1) % Eos # (Auto) (0-0.5) x10^3/uL Immature Gran # (Auto) (0.00-0.03) x10^3u/L Absolute Lymphs (auto) (1.0-4.6) x10^3/uL Absolute Monos (auto) (0.0-1.3) x10^3/uL Absolute Nucleated RBC (0.00-0.01) x10^3u/L Lymphocytes % (24.0-44.0) % Monocytes % (0.0-12.0) % Eosinophils % (0.00-5.0) % Basophils % (0.0-0.4) % Absolute Granulocytes (1.4-6.9) x10^3/uL Basophils # (0-0.4) x10^3/uL pO2/FiO2 Ratio % VBG pH (7.32-7.42) VBG pCO2 at Pat Temp (42-55) mm/Hg VBG pO2 at Pat Temp (25-40) mm/Hg VBG HCO3 (22-28) meq/L VBG O2 Sat (Christel) (95-100) VBG Base Excess (-2.0-2.0) VBG Hemoglobin VBG Carboxyhemoglobin (0.0-6.9) % T HGB POC Potassium (3.5-5.1) Sodium (135-145) mmol/L Potassium (3.5-5.1) mmol/L Chloride (98-107) mmol/L Carbon Dioxide (22-30) mmol/L Anion Gap (5-15) MEQ/L BUN (9-20) mg/dL Creatinine (0.66-1.25) mg/dL Estimated GFR ML/MIN Glucose (74-106) mg/dL POC Glucometer 150 H (74 to 106) mg/dL Hemoglobin A1c (4.5-6.0) % Lactic Acid 2.6 H (0.4-2.0) Calcium (8.4-10.2) mg/dL Total Bilirubin (0.2-1.3) mg/dL AST (17-59) U/L ALT (0-50) U/L Alkaline Phosphatase (38-126) U/L Troponin I < 0.012 (0.000-0.034) ng/mL NT-Pro-B Natriuret Pep (<300) pg/mL Serum Total Protein (6.3-8.2) g/dL Albumin (3.5-5.0) g/dL Urine Color (Yellow) Urine Appearance (Clear) Urine pH (4.6-8.0) Ur Specific Ward (1.005-1.030) Urine Protein (Negative) Urine Glucose (UA) (Negative) mg/dL Urine Ketones (Negative) Urine Blood (Negative) Urine Nitrite (Negative) Urine Bilirubin (Negative) Urine Urobilinogen (0.2) mg/dL Ur Leukocyte Esterase (Negative) U Hyaline Cast (Auto) (0-2) /LPF Urine Microscopic RBC (0-5) /HPF Urine Microscopic WBC (0-5) /HPF Ur Epithelial Cells (None Seen) /HPF Urine Bacteria (None Seen) /HPF Urine Culture Reflexed (NO) Ur Random Creatinine MG/DL Urine Sodium (30-90) mmol/L Salicylates (2-20) mg/dL Urine Opiates Level (NEGATIVE) Ur Methadone (NEGATIVE) Acetaminophen (10-30) ug/ml Urine Barbiturates (NEGATIVE) Ur Phencyclidine (PCP) (NEGATIVE) Urine Amphetamine (NEGATIVE) U Benzodiazepine Level (NEGATIVE) Urine Cocaine (NEGATIVE) Urine Marijuana (THC) (NEGATIVE) Ethyl Alcohol (0-10) mg/dL Influenza Type A Ag (NEGATIVE) Influenza Type B Ag (NEGATIVE) RSV (PCR) (NEGATIVE) SARS-CoV-2 (PCR) (NEGATIVE) 10/09/23 10/09/23 10/10/23 Range/Units 23:11 23:55 00:01 WBC (4.0-10.5) x10^3/uL RBC (4.1-5.6) x10^6/uL Hgb (12.5-18.0) g/dL Hct (42-50) % MCV (78-100) fL MCH (26-32) pg MCHC (32-36) g/dL RDW (11.5-14.0) % Plt Count (150-450) x10^3/uL MPV (7.5-11.0) fL Gran % (36.0-66.0) % Immature Gran % (Auto) (0.00-0.4) % Nucleat RBC Rel Count (0.00-0.1) % Eos # (Auto) (0-0.5) x10^3/uL Immature Gran # (Auto) (0.00-0.03) x10^3u/L Absolute Lymphs (auto) (1.0-4.6) x10^3/uL Absolute Monos (auto) (0.0-1.3) x10^3/uL Absolute Nucleated RBC (0.00-0.01) x10^3u/L Lymphocytes % (24.0-44.0) % Monocytes % (0.0-12.0) % Eosinophils % (0.00-5.0) % Basophils % (0.0-0.4) % Absolute Granulocytes (1.4-6.9) x10^3/uL Basophils # (0-0.4) x10^3/uL pO2/FiO2 Ratio % VBG pH (7.32-7.42) VBG pCO2 at Pat Temp (42-55) mm/Hg VBG pO2 at Pat Temp (25-40) mm/Hg VBG HCO3 (22-28) meq/L VBG O2 Sat (Christel) (95-100) VBG Base Excess (-2.0-2.0) VBG Hemoglobin VBG Carboxyhemoglobin (0.0-6.9) % T HGB POC Potassium (3.5-5.1) Sodium (135-145) mmol/L Potassium (3.5-5.1) mmol/L Chloride (98-107) mmol/L Carbon Dioxide (22-30) mmol/L Anion Gap (5-15) MEQ/L BUN (9-20) mg/dL Creatinine (0.66-1.25) mg/dL Estimated GFR ML/MIN Glucose (74-106) mg/dL POC Glucometer 147 H 204 H (74 to 106) mg/dL Hemoglobin A1c (4.5-6.0) % Lactic Acid (0.4-2.0) Calcium (8.4-10.2) mg/dL Total Bilirubin (0.2-1.3) mg/dL AST (17-59) U/L ALT (0-50) U/L Alkaline Phosphatase (38-126) U/L Troponin I (0.000-0.034) ng/mL NT-Pro-B Natriuret Pep (<300) pg/mL Serum Total Protein (6.3-8.2) g/dL Albumin (3.5-5.0) g/dL Urine Color (Yellow) Urine Appearance (Clear) Urine pH (4.6-8.0) Ur Specific Ward (1.005-1.030) Urine Protein (Negative) Urine Glucose (UA) (Negative) mg/dL Urine Ketones (Negative) Urine Blood (Negative) Urine Nitrite (Negative) Urine Bilirubin (Negative) Urine Urobilinogen (0.2) mg/dL Ur Leukocyte Esterase (Negative) U Hyaline Cast (Auto) (0-2) /LPF Urine Microscopic RBC (0-5) /HPF Urine Microscopic WBC (0-5) /HPF Ur Epithelial Cells (None Seen) /HPF Urine Bacteria (None Seen) /HPF Urine Culture Reflexed (NO) Ur Random Creatinine 154.2 MG/DL Urine Sodium (30-90) mmol/L Salicylates (2-20) mg/dL Urine Opiates Level (NEGATIVE) Ur Methadone (NEGATIVE) Acetaminophen (10-30) ug/ml Urine Barbiturates (NEGATIVE) Ur Phencyclidine (PCP) (NEGATIVE) Urine Amphetamine (NEGATIVE) U Benzodiazepine Level (NEGATIVE) Urine Cocaine (NEGATIVE) Urine Marijuana (THC) (NEGATIVE) Ethyl Alcohol (0-10) mg/dL Influenza Type A Ag (NEGATIVE) Influenza Type B Ag (NEGATIVE) RSV (PCR) (NEGATIVE) SARS-CoV-2 (PCR) (NEGATIVE) 10/10/23 10/10/23 10/10/23 Range/Units 00:01 00:56 02:49 WBC (4.0-10.5) x10^3/uL RBC (4.1-5.6) x10^6/uL Hgb (12.5-18.0) g/dL Hct (42-50) % MCV (78-100) fL MCH (26-32) pg MCHC (32-36) g/dL RDW (11.5-14.0) % Plt Count (150-450) x10^3/uL MPV (7.5-11.0) fL Gran % (36.0-66.0) % Immature Gran % (Auto) (0.00-0.4) % Nucleat RBC Rel Count (0.00-0.1) % Eos # (Auto) (0-0.5) x10^3/uL Immature Gran # (Auto) (0.00-0.03) x10^3u/L Absolute Lymphs (auto) (1.0-4.6) x10^3/uL Absolute Monos (auto) (0.0-1.3) x10^3/uL Absolute Nucleated RBC (0.00-0.01) x10^3u/L Lymphocytes % (24.0-44.0) % Monocytes % (0.0-12.0) % Eosinophils % (0.00-5.0) % Basophils % (0.0-0.4) % Absolute Granulocytes (1.4-6.9) x10^3/uL Basophils # (0-0.4) x10^3/uL pO2/FiO2 Ratio % VBG pH (7.32-7.42) VBG pCO2 at Pat Temp (42-55) mm/Hg VBG pO2 at Pat Temp (25-40) mm/Hg VBG HCO3 (22-28) meq/L VBG O2 Sat (Christel) (95-100) VBG Base Excess (-2.0-2.0) VBG Hemoglobin VBG Carboxyhemoglobin (0.0-6.9) % T HGB POC Potassium (3.5-5.1) Sodium (135-145) mmol/L Potassium (3.5-5.1) mmol/L Chloride (98-107) mmol/L Carbon Dioxide (22-30) mmol/L Anion Gap (5-15) MEQ/L BUN (9-20) mg/dL Creatinine (0.66-1.25) mg/dL Estimated GFR ML/MIN Glucose (74-106) mg/dL POC Glucometer 197 H 200 H (74 to 106) mg/dL Hemoglobin A1c (4.5-6.0) % Lactic Acid (0.4-2.0) Calcium (8.4-10.2) mg/dL Total Bilirubin (0.2-1.3) mg/dL AST (17-59) U/L ALT (0-50) U/L Alkaline Phosphatase (38-126) U/L Troponin I (0.000-0.034) ng/mL NT-Pro-B Natriuret Pep (<300) pg/mL Serum Total Protein (6.3-8.2) g/dL Albumin (3.5-5.0) g/dL Urine Color (Yellow) Urine Appearance (Clear) Urine pH (4.6-8.0) Ur Specific Ward (1.005-1.030) Urine Protein (Negative) Urine Glucose (UA) (Negative) mg/dL Urine Ketones (Negative) Urine Blood (Negative) Urine Nitrite (Negative) Urine Bilirubin (Negative) Urine Urobilinogen (0.2) mg/dL Ur Leukocyte Esterase (Negative) U Hyaline Cast (Auto) (0-2) /LPF Urine Microscopic RBC (0-5) /HPF Urine Microscopic WBC (0-5) /HPF Ur Epithelial Cells (None Seen) /HPF Urine Bacteria (None Seen) /HPF Urine Culture Reflexed (NO) Ur Random Creatinine MG/DL Urine Sodium 74 (30-90) mmol/L Salicylates (2-20) mg/dL Urine Opiates Level (NEGATIVE) Ur Methadone (NEGATIVE) Acetaminophen (10-30) ug/ml Urine Barbiturates (NEGATIVE) Ur Phencyclidine (PCP) (NEGATIVE) Urine Amphetamine (NEGATIVE) U Benzodiazepine Level (NEGATIVE) Urine Cocaine (NEGATIVE) Urine Marijuana (THC) (NEGATIVE) Ethyl Alcohol (0-10) mg/dL Influenza Type A Ag (NEGATIVE) Influenza Type B Ag (NEGATIVE) RSV (PCR) (NEGATIVE) SARS-CoV-2 (PCR) (NEGATIVE) 10/10/23 10/10/23 10/10/23 Range/Units 03:10 03:10 03:10 WBC 5.9 (4.0-10.5) x10^3/uL RBC 4.37 (4.1-5.6) x10^6/uL Hgb 12.1 L (12.5-18.0) g/dL Hct 41.4 L (42-50) % MCV 94.7 (78-100) fL MCH 27.7 (26-32) pg MCHC 29.2 L (32-36) g/dL RDW 15.1 H (11.5-14.0) % Plt Count 101 L (150-450) x10^3/uL MPV 10.7 (7.5-11.0) fL Gran % 72.1 H (36.0-66.0) % Immature Gran % (Auto) 0.3 (0.00-0.4) % Nucleat RBC Rel Count 0.0 (0.00-0.1) % Eos # (Auto) 0.07 (0-0.5) x10^3/uL Immature Gran # (Auto) 0.02 (0.00-0.03) x10^3u/L Absolute Lymphs (auto) 0.91 L (1.0-4.6) x10^3/uL Absolute Monos (auto) 0.62 (0.0-1.3) x10^3/uL Absolute Nucleated RBC 0.00 (0.00-0.01) x10^3u/L Lymphocytes % 15.3 L (24.0-44.0) % Monocytes % 10.4 (0.0-12.0) % Eosinophils % 1.2 (0.00-5.0) % Basophils % 0.7 (0.0-0.4) % Absolute Granulocytes 4.28 (1.4-6.9) x10^3/uL Basophils # 0.04 (0-0.4) x10^3/uL pO2/FiO2 Ratio % VBG pH (7.32-7.42) VBG pCO2 at Pat Temp (42-55) mm/Hg VBG pO2 at Pat Temp (25-40) mm/Hg VBG HCO3 (22-28) meq/L VBG O2 Sat (Christel) (95-100) VBG Base Excess (-2.0-2.0) VBG Hemoglobin VBG Carboxyhemoglobin (0.0-6.9) % T HGB POC Potassium (3.5-5.1) Sodium 140 (135-145) mmol/L Potassium 4.0 D (3.5-5.1) mmol/L Chloride 103 (98-107) mmol/L Carbon Dioxide 29 (22-30) mmol/L Anion Gap 11.8 (5-15) MEQ/L BUN 24 H (9-20) mg/dL Creatinine 1.75 H (0.66-1.25) mg/dL Estimated GFR 42.9 ML/MIN Glucose 183 H (74-106) mg/dL POC Glucometer (74 to 106) mg/dL Hemoglobin A1c (4.5-6.0) % Lactic Acid (0.4-2.0) Calcium 8.7 (8.4-10.2) mg/dL Total Bilirubin 1.10 (0.2-1.3) mg/dL AST 29 (17-59) U/L ALT 18 (0-50) U/L Alkaline Phosphatase 75 (38-126) U/L Troponin I < 0.012 (0.000-0.034) ng/mL NT-Pro-B Natriuret Pep (<300) pg/mL Serum Total Protein 6.7 (6.3-8.2) g/dL Albumin 4.0 (3.5-5.0) g/dL Urine Color (Yellow) Urine Appearance (Clear) Urine pH (4.6-8.0) Ur Specific Ward (1.005-1.030) Urine Protein (Negative) Urine Glucose (UA) (Negative) mg/dL Urine Ketones (Negative) Urine Blood (Negative) Urine Nitrite (Negative) Urine Bilirubin (Negative) Urine Urobilinogen (0.2) mg/dL Ur Leukocyte Esterase (Negative) U Hyaline Cast (Auto) (0-2) /LPF Urine Microscopic RBC (0-5) /HPF Urine Microscopic WBC (0-5) /HPF Ur Epithelial Cells (None Seen) /HPF Urine Bacteria (None Seen) /HPF Urine Culture Reflexed (NO) Ur Random Creatinine MG/DL Urine Sodium (30-90) mmol/L Salicylates (2-20) mg/dL Urine Opiates Level (NEGATIVE) Ur Methadone (NEGATIVE) Acetaminophen (10-30) ug/ml Urine Barbiturates (NEGATIVE) Ur Phencyclidine (PCP) (NEGATIVE) Urine Amphetamine (NEGATIVE) U Benzodiazepine Level (NEGATIVE) Urine Cocaine (NEGATIVE) Urine Marijuana (THC) (NEGATIVE) Ethyl Alcohol (0-10) mg/dL Influenza Type A Ag (NEGATIVE) Influenza Type B Ag (NEGATIVE) RSV (PCR) (NEGATIVE) SARS-CoV-2 (PCR) (NEGATIVE) 10/10/23 10/10/23 10/10/23 Range/Units 05:00 06:55 08:00 WBC (4.0-10.5) x10^3/uL RBC (4.1-5.6) x10^6/uL Hgb (12.5-18.0) g/dL Hct (42-50) % MCV (78-100) fL MCH (26-32) pg MCHC (32-36) g/dL RDW (11.5-14.0) % Plt Count (150-450) x10^3/uL MPV (7.5-11.0) fL Gran % (36.0-66.0) % Immature Gran % (Auto) (0.00-0.4) % Nucleat RBC Rel Count (0.00-0.1) % Eos # (Auto) (0-0.5) x10^3/uL Immature Gran # (Auto) (0.00-0.03) x10^3u/L Absolute Lymphs (auto) (1.0-4.6) x10^3/uL Absolute Monos (auto) (0.0-1.3) x10^3/uL Absolute Nucleated RBC (0.00-0.01) x10^3u/L Lymphocytes % (24.0-44.0) % Monocytes % (0.0-12.0) % Eosinophils % (0.00-5.0) % Basophils % (0.0-0.4) % Absolute Granulocytes (1.4-6.9) x10^3/uL Basophils # (0-0.4) x10^3/uL pO2/FiO2 Ratio % VBG pH (7.32-7.42) VBG pCO2 at Pat Temp (42-55) mm/Hg VBG pO2 at Pat Temp (25-40) mm/Hg VBG HCO3 (22-28) meq/L VBG O2 Sat (Christel) (95-100) VBG Base Excess (-2.0-2.0) VBG Hemoglobin VBG Carboxyhemoglobin (0.0-6.9) % T HGB POC Potassium (3.5-5.1) Sodium (135-145) mmol/L Potassium (3.5-5.1) mmol/L Chloride (98-107) mmol/L Carbon Dioxide (22-30) mmol/L Anion Gap (5-15) MEQ/L BUN (9-20) mg/dL Creatinine (0.66-1.25) mg/dL Estimated GFR ML/MIN Glucose (74-106) mg/dL POC Glucometer 145 H 120 H (74 to 106) mg/dL Hemoglobin A1c (4.5-6.0) % Lactic Acid 1.3 (0.4-2.0) Calcium (8.4-10.2) mg/dL Total Bilirubin (0.2-1.3) mg/dL AST (17-59) U/L ALT (0-50) U/L Alkaline Phosphatase (38-126) U/L Troponin I (0.000-0.034) ng/mL NT-Pro-B Natriuret Pep (<300) pg/mL Serum Total Protein (6.3-8.2) g/dL Albumin (3.5-5.0) g/dL Urine Color (Yellow) Urine Appearance (Clear) Urine pH (4.6-8.0) Ur Specific Ward (1.005-1.030) Urine Protein (Negative) Urine Glucose (UA) (Negative) mg/dL Urine Ketones (Negative) Urine Blood (Negative) Urine Nitrite (Negative) Urine Bilirubin (Negative) Urine Urobilinogen (0.2) mg/dL Ur Leukocyte Esterase (Negative) U Hyaline Cast (Auto) (0-2) /LPF Urine Microscopic RBC (0-5) /HPF Urine Microscopic WBC (0-5) /HPF Ur Epithelial Cells (None Seen) /HPF Urine Bacteria (None Seen) /HPF Urine Culture Reflexed (NO) Ur Random Creatinine MG/DL Urine Sodium (30-90) mmol/L Salicylates (2-20) mg/dL Urine Opiates Level (NEGATIVE) Ur Methadone (NEGATIVE) Acetaminophen (10-30) ug/ml Urine Barbiturates (NEGATIVE) Ur Phencyclidine (PCP) (NEGATIVE) Urine Amphetamine (NEGATIVE) U Benzodiazepine Level (NEGATIVE) Urine Cocaine (NEGATIVE) Urine Marijuana (THC) (NEGATIVE) Ethyl Alcohol (0-10) mg/dL Influenza Type A Ag (NEGATIVE) Influenza Type B Ag (NEGATIVE) RSV (PCR) (NEGATIVE) SARS-CoV-2 (PCR) (NEGATIVE) 10/10/23 10/10/23 10/10/23 Range/Units 08:59 11:11 Unknown WBC (4.0-10.5) x10^3/uL RBC (4.1-5.6) x10^6/uL Hgb (12.5-18.0) g/dL Hct (42-50) % MCV (78-100) fL MCH (26-32) pg MCHC (32-36) g/dL RDW (11.5-14.0) % Plt Count (150-450) x10^3/uL MPV (7.5-11.0) fL Gran % (36.0-66.0) % Immature Gran % (Auto) (0.00-0.4) % Nucleat RBC Rel Count (0.00-0.1) % Eos # (Auto) (0-0.5) x10^3/uL Immature Gran # (Auto) (0.00-0.03) x10^3u/L Absolute Lymphs (auto) (1.0-4.6) x10^3/uL Absolute Monos (auto) (0.0-1.3) x10^3/uL Absolute Nucleated RBC (0.00-0.01) x10^3u/L Lymphocytes % (24.0-44.0) % Monocytes % (0.0-12.0) % Eosinophils % (0.00-5.0) % Basophils % (0.0-0.4) % Absolute Granulocytes (1.4-6.9) x10^3/uL Basophils # (0-0.4) x10^3/uL pO2/FiO2 Ratio % VBG pH (7.32-7.42) VBG pCO2 at Pat Temp (42-55) mm/Hg VBG pO2 at Pat Temp (25-40) mm/Hg VBG HCO3 (22-28) meq/L VBG O2 Sat (Christel) (95-100) VBG Base Excess (-2.0-2.0) VBG Hemoglobin VBG Carboxyhemoglobin (0.0-6.9) % T HGB POC Potassium (3.5-5.1) Sodium (135-145) mmol/L Potassium (3.5-5.1) mmol/L Chloride (98-107) mmol/L Carbon Dioxide (22-30) mmol/L Anion Gap (5-15) MEQ/L BUN (9-20) mg/dL Creatinine (0.66-1.25) mg/dL Estimated GFR ML/MIN Glucose (74-106) mg/dL POC Glucometer 106 105 (74 to 106) mg/dL Hemoglobin A1c 5.98 (4.5-6.0) % Lactic Acid (0.4-2.0) Calcium (8.4-10.2) mg/dL Total Bilirubin (0.2-1.3) mg/dL AST (17-59) U/L ALT (0-50) U/L Alkaline Phosphatase (38-126) U/L Troponin I (0.000-0.034) ng/mL NT-Pro-B Natriuret Pep (<300) pg/mL Serum Total Protein (6.3-8.2) g/dL Albumin (3.5-5.0) g/dL Urine Color (Yellow) Urine Appearance (Clear) Urine pH (4.6-8.0) Ur Specific Ward (1.005-1.030) Urine Protein (Negative) Urine Glucose (UA) (Negative) mg/dL Urine Ketones (Negative) Urine Blood (Negative) Urine Nitrite (Negative) Urine Bilirubin (Negative) Urine Urobilinogen (0.2) mg/dL Ur Leukocyte Esterase (Negative) U Hyaline Cast (Auto) (0-2) /LPF Urine Microscopic RBC (0-5) /HPF Urine Microscopic WBC (0-5) /HPF Ur Epithelial Cells (None Seen) /HPF Urine Bacteria (None Seen) /HPF Urine Culture Reflexed (NO) Ur Random Creatinine MG/DL Urine Sodium (30-90) mmol/L Salicylates (2-20) mg/dL Urine Opiates Level (NEGATIVE) Ur Methadone (NEGATIVE) Acetaminophen (10-30) ug/ml Urine Barbiturates (NEGATIVE) Ur Phencyclidine (PCP) (NEGATIVE) Urine Amphetamine (NEGATIVE) U Benzodiazepine Level (NEGATIVE) Urine Cocaine (NEGATIVE) Urine Marijuana (THC) (NEGATIVE) Ethyl Alcohol (0-10) mg/dL Influenza Type A Ag (NEGATIVE) Influenza Type B Ag (NEGATIVE) RSV (PCR) (NEGATIVE) SARS-CoV-2 (PCR) (NEGATIVE) Radiology Exams: Radiology Procedures Category Date Time Status CHEST 1 VIEW (PORTABLE) Stat Exams 10/09/23 19:10 Completed HEAD WITHOUT CONTRAST [CT] Stat Exams 10/09/23 19:10 Completed Renal Ultrasound [KIDNEY] [US] Routine Exams 10/10/23 00:36 Completed Multi-Disciplinary Progress Notes: Multi-Disciplinary Progress Notes 10/09/23 19:38 Respiratory Note by Lianet Ruano PT CAME IN UNRESPONSIVE BUT PULSE PRESENT. PT AMBUED WITH 100% OXYGEN FOR APPROXIMATELY 2-3 MINUTES UNTIL HE BECAME RESPONSIVE AND BREATHING ON HIS OWN. PT THEN PLACED ON 4LPM VIA NASAL CANNULA. O2 SAT 96-98%. NO OTHER RESPIRATORY INTERVENTIONS WERE REQUIRED. Initialized on 10/09/23 19:38 - END OF NOTE Assessment/Plan (1) Hypoglycemia Current Visit: Yes Status: Acute Assessment & Plan: Likely from medications with poor PO intake 1. Hold Trulicity/Jardiance 2. FSBS qAC/HS 3. Glucose prn 4. Stop IVF with dextrose as pt is now eating and drinking. 5. nutrition consult as pt reports he only eats 1 meal per day. 6. Transition out of ICU to med surg bed. Code(s): E16.2 - HYPOGLYCEMIA, UNSPECIFIED (2) Acute kidney injury Current Visit: Yes Status: Acute Assessment & Plan: NED on CKD likely from prerenal azotemia 1. IVFs- stopped 2. Hold SGLT2 3. Check urine lytes, urine creatinine 4. Renal u/s: 10/09- negative 5. Follow I/Os 6. Watch electrolytes, creatinine closely Code(s): N17.9 - ACUTE KIDNEY FAILURE, UNSPECIFIED (3) Hypertensive chronic kidney disease with stage 1 through stage 4 chronic kidney disease, or unspecified chronic kidney disease Current Visit: Yes Status: Acute Assessment & Plan: Blood pressure under reasonable control on Metoprolol/Lisinopril 1. Continue bp meds 2. Low Na+ diet 3. Monitor blood pressure readings Code(s): I12.9 - HYPERTENSIVE CHRONIC KIDNEY DISEASE W STG 1-4/UNSP CHR KDNY (4) Type 2 diabetes mellitus with diabetic chronic kidney disease Current Visit: Yes Status: Chronic Qualifiers: Diabetes mellitus long-term insulin use: with intermodal truck driver use Chronic kidney disease stage: stage 3 (moderate) Chronic kidney disease stage 3 subtype: stage 3b (GFR 30-44) Qualified Code(s): E11.22 - Type 2 diabetes mellitus with diabetic chronic kidney disease; N18.32 - Chronic kidney disease, stage 3b; Z79.4 - meterman (current) use of insulin Assessment & Plan: 1. Hold Trulicity/Jardiance 2. FSBS qAC/HS 3. Glucose prn 4. Stop IVF with dextrose as pt is now eating and drinking. 5. nutrition consult as pt reports he only eats 1 meal per day. Code(s): E11.22 - TYPE 2 DIABETES MELLITUS W DIABETIC CHRONIC KIDNEY DISEASE (5) Hypokalemia Current Visit: Yes Status: Resolved Assessment & Plan: - resolved VTE: Lovenox, Plavix PPI: Protonix Next of Kin: Dee Dee Stanford [phone] D/C plan: tomorrow Code status: Full Code(s): E87.6 - HYPOKALEMIA
[2023-10-10] MEDS: Sodium Chloride 0.9% 1000 ML 1,000 ML IV SCH (14:45)
[2023-10-11 04:54] LABS: Hematocrit 39.3 % (42-50); Hemoglobin 11.4 g/dL (12.5-18.0); Mean Cell Volume 94.5 fL (78-100); Mean Corpuscular Hemoglobin 27.4 pg (26-32); Mean Platelet Volume 11.4 fL (7.5-11.0); Platelet Count 93 x10^3/uL (150-450); Red Blood Count 4.16 x10^6/uL (4.1-5.6); Red Cell Distribution Width 15.4 % (11.5-14.0); White Blood Count 4.5 x10^3/uL (4.0-10.5)
[2023-10-11 05:09] LABS: ANION GAP 10.6 MEQ/L (5-15); Calcium 8.7 mg/dL (8.4-10.2); Creatinine 1 1.52 mg/dL (0.66-1.25); EST GLOMERULAR FILTRATION RATE 50.9 ML/MIN
[2023-10-11 05:33] LABS: Slide Review YES
[2023-10-11 07:23] VITALS: BP 135/66; PULSE 66; RESP 17; TEMP 97.5; O2SAT 92
--- NOTE | 2023-10-11 09:41 | PCM.DS ---
Discharge Summary Date of Admission: 10/09/23 23:07 Date of Discharge: 10/11/23 Admitting Physician: ZIA ESPINOZA MD Consults: Consults on Case 10/10/23 10:30 Nutritional Consult ROUTINE Primary Care Provider: LINA RICHARDSON Allergies Allergies Penicillins Allergy (Verified 10/09/23 19:14) Hospital Summary - Hospital Course Hospital Course: 10/10/23 Mr. RAM is a 63 year old male with a past medical history significant for hypertension, diabetes, and hyperlipdemia. He was brought to the hospital on 10/08 with altered mental status attributed to marked hypoglycemia. He had given himself his usual insulin shot and then went to a function where he was confused. Blood sugars were in the 20-30s, so he was given multiple doses of glucose to raise his sugars. He admits to usually only eating 1 meal per day. Nutrition consulted for education of proper eating with type II DM dx and insulin. There was a med error in ER and sodium bicarb amps were given. Pt has had no adverse reaction from this. He was in ICU and can be moved out to a med surg bed today. Platelets are low at 101 and pt states no prior hx. He has been getting IVF and may be related. Will need Op f/u with PCP. Hypokalemia resolved. Continues to have NED with no prior hx per pt. No old labs to review. Renal US showed no concerning findings. Continue to hold trulicity, glyxambi, actos and jardiance. He has had no further episodes since admission. He denies CP, Abd. pain, N/V/D. 10/11/23 Pt resting in bed. He is feeling much better. After further discussion today pt does have a dough mixing machine operator he see's on a regular basis. NED improved, again unknown baseline kidney function. Since admission we have held all meds for type II DM and he has done well. After further discussion pt has lost 20lbs recently as he cut out all dairy. He did this as he felt dairy was making his stomach upset. He has felt better since doing this. Explained loosing that much weight may have affected the amount of medication he needs. Discussed A1C is 5.98. Film Processor saw pt yesterday and provided education on ADA diet and the importance of eating 3 meals a day. Pt has been only eating 1 meal daily. Will hold all DM meds and have pt f/u with PCP to discuss. He denies any further concerns at this time. - Vitals & Intake/Output Vital Signs: Vital Signs Temperature 97.5 F 10/11/23 07:22 Pulse Rate 66 10/11/23 07:22 Respiratory Rate 17 10/11/23 07:22 Blood Pressure 135/66 10/11/23 07:22 O2 Sat by Pulse Oximetry 92 L 10/11/23 08:04 Intake & Output: Intake & Output 10/08/23 10/09/23 10/10/23 10/11/23 11:59 11:59 11:59 11:59 Intake Total 1027 2220 Output Total 2300 1775 Balance -1273 445 Weight 103.6 kg - Lab Result Diagrams: 10/11/23 04:28 10/11/23 04:28 Lab Results-Last 24 Hrs: Lab Results-Last 24 Hours 10/10/23 10/10/23 10/10/23 Range/Units 11:11 16:57 21:27 WBC (4.0-10.5) x10^3/uL RBC (4.1-5.6) x10^6/uL Hgb (12.5-18.0) g/dL Hct (42-50) % MCV (78-100) fL MCH (26-32) pg MCHC (32-36) g/dL RDW (11.5-14.0) % Plt Count (150-450) x10^3/uL MPV (7.5-11.0) fL Sodium (135-145) mmol/L Potassium (3.5-5.1) mmol/L Chloride (98-107) mmol/L Carbon Dioxide (22-30) mmol/L Anion Gap (5-15) MEQ/L BUN (9-20) mg/dL Creatinine (0.66-1.25) mg/dL Estimated GFR ML/MIN Glucose (74-106) mg/dL POC Glucometer 105 135 H 146 H (74 to 106) mg/dL Calcium (8.4-10.2) mg/dL Slides for Path Review 10/11/23 10/11/23 10/11/23 Range/Units 04:28 04:28 07:07 WBC 4.5 (4.0-10.5) x10^3/uL RBC 4.16 (4.1-5.6) x10^6/uL Hgb 11.4 L (12.5-18.0) g/dL Hct 39.3 L (42-50) % MCV 94.5 (78-100) fL MCH 27.4 (26-32) pg MCHC 29.0 L (32-36) g/dL RDW 15.4 H (11.5-14.0) % Plt Count 93 L (150-450) x10^3/uL MPV 11.4 H (7.5-11.0) fL Sodium 141 (135-145) mmol/L Potassium 4.0 (3.5-5.1) mmol/L Chloride 108 H (98-107) mmol/L Carbon Dioxide 26 (22-30) mmol/L Anion Gap 10.6 (5-15) MEQ/L BUN 22 H (9-20) mg/dL Creatinine 1.52 H (0.66-1.25) mg/dL Estimated GFR 50.9 ML/MIN Glucose 107 H (74-106) mg/dL POC Glucometer 109 H (74 to 106) mg/dL Calcium 8.7 (8.4-10.2) mg/dL Slides for Path Review YES Micro Results-Entire Visit: Microbiology 10/09/23 19:28 Urine Culture - Final Urine, Catheterized NO GROWTH 10/09/23 19:55 Blood Culture - Preliminary Blood 10/09/23 19:23 Blood Culture - Preliminary Blood Accuchecks Date 10/11/23 Date 10/10/23 Date 10/10/23 Time 17:07 Time 12:25 - Radiology Exams Ordered Rad Exams-Entire Visit: Radiology Procedures Category Date Time Status CHEST 1 VIEW (PORTABLE) Stat Exams 10/09/23 19:10 Completed HEAD WITHOUT CONTRAST [CT] Stat Exams 10/09/23 19:10 Completed Renal Ultrasound [KIDNEY] [US] Routine Exams 10/10/23 00:36 Completed - Procedures and Test Procedures and Tests throughout Hospitalization: Therapy Orders & Screens 10/09/23 19:42 Standby STAT Comment: 10/09/23 22:13 Respiratory Therapy Consult ONCE Comment: Reason For Exam: 10/10/23 01:09 OT Screen per Nursing Assess ONCE Comment: Protocol Order Physician Instructions: Greater than 3 points order OT Admission Screening Reason For Exam: Triggered on Admission Diagnosis: hypoglycemia Open Wound/Cellutlitis/Pressure Ulcers: Yes: CELLULITIS? Acute Fx/ORIF/Change in wt bearing status: No Severe MUSCULOSKELETAL pain: No ADL Dysfunction: No Acute CVA w/Hemiparesis/Hemiplegia: No Decreased Functional Mobility/Strength: No Sprain/Strain: No Acute Post-op Mobility Dysfunction: No Total Points: 5 PT Screen per Nursing Assess ONCE Comment: Protocol Order Physician Instructions: Greater than 3 points order PT Admission Screenin Reason For Exam: Triggered on Admission Diagnosis: hypoglycemia Open Wound/Cellutlitis/Pressure Ulcers: Yes: CELLULITIS? Acute Fx/ORIF/Change in wt bearing status: No Severe MUSCULOSKELETAL pain: No ADL Dysfunction: No Acute CVA w/Hemiparesis/Hemiplegia: No Decreased Functional Mobility/Strength: No Sprain/Strain: No Acute Post-op Mobility Dysfunction: No Total Points: 5 Discharge Exam General Appearance: no apparent distress, alert Neurologic Exam: alert, oriented x 3, cooperative, normal mood/affect, nml cerebellar function, sensation nml, No motor deficits Eye Exam: PERRL, EOMI, eyes nml inspection Ears, Nose, Throat Exam: normal ENT inspection, pharynx normal, moist mucous membranes Neck Exam: normal inspection, non-tender, supple, full range of motion Respiratory Exam: normal breath sounds, lungs clear, No respiratory distress Cardiovascular Exam: regular rate/rhythm, normal heart sounds Gastrointestinal/Abdomen Exam: soft, No tenderness, No mass Male Genitalia Exam: deferred Rectal Exam: deferred Back Exam: normal inspection, normal range of motion, No CVA tenderness, No vertebral tenderness Extremity Exam: normal inspection, normal range of motion Skin Exam: normal color, warm, dry Final Diagnosis/Problem List - Final Discharge Diagnosis/Problem (1) Hypoglycemia Current Visit: Yes Status: Acute Code(s): E16.2 - HYPOGLYCEMIA, UNSPECIFIED (2) Acute kidney injury Current Visit: Yes Status: Acute Code(s): N17.9 - ACUTE KIDNEY FAILURE, UNSPECIFIED (3) Hypertensive chronic kidney disease with stage 1 through stage 4 chronic kidney disease, or unspecified chronic kidney disease Current Visit: Yes Status: Acute Code(s): I12.9 - HYPERTENSIVE CHRONIC KIDNEY DISEASE W STG 1-4/UNSP CHR KDNY (4) Type 2 diabetes mellitus with diabetic chronic kidney disease Current Visit: Yes Status: Chronic Code(s): E11.22 - TYPE 2 DIABETES MELLITUS W DIABETIC CHRONIC KIDNEY DISEASE (5) Hypokalemia Current Visit: Yes Status: Resolved Assessment & Plan: (1) Hypoglycemia Current Visit: Yes Status: Acute Assessment & Plan: Likely from medications with poor PO intake 1. Hold Trulicity/Jardiance 2. FSBS qAC/HS 3. Glucose prn 4. Stop IVF with dextrose as pt is now eating and drinking. 5. nutrition consult as pt reports he only eats 1 meal per day. 6. Transition out of ICU to med surg bed. 10/10 - glucose stable with all diabetic meds held. - appointment made with PCP tomorrow to discuss OP meds needed - pt admits to 20lbs weight loss recently d/t cutting out dairy - Nutrition consulted yesterday and discussed the importance of eating 3 meals per day with diabetic meds to prevent hypogylcemia. Code(s): E16.2 - HYPOGLYCEMIA, UNSPECIFIED (2) Acute kidney injury Current Visit: Yes Status: Acute Assessment & Plan: NED on CKD likely from prerenal azotemia 1. IVFs- stopped 2. Hold SGLT2 3. Check urine lytes, urine creatinine 4. Renal u/s: 10/09- negative 5. Follow I/Os 6. Watch electrolytes, creatinine closely 10/10 - labs improved- unknown baseline - pt admits he does follow a dough mixing machine operator - Dr. Sal- Op appointment made Code(s): N17.9 - ACUTE KIDNEY FAILURE, UNSPECIFIED (3) Hypertensive chronic kidney disease with stage 1 through stage 4 chronic kidney disease, or unspecified chronic kidney disease Current Visit: Yes Status: Acute Assessment & Plan: Blood pressure under reasonable control on Metoprolol/Lisinopril 1. Continue bp meds 2. Low Na+ diet 3. Monitor blood pressure readings Code(s): I12.9 - HYPERTENSIVE CHRONIC KIDNEY DISEASE W STG 1-4/UNSP CHR KDNY (4) Type 2 diabetes mellitus with diabetic chronic kidney disease Current Visit: Yes Status: Chronic Qualifiers: Diabetes mellitus intermediate insulin use: with extermination supervisor use Chronic kidney disease stage: stage 3 (moderate) Chronic kidney disease stage 3 subtype: stage 3b (GFR 30-44) Qualified Code(s): E11.22 - Type 2 diabetes mellitus with diabetic chronic kidney disease; N18.32 - Chronic kidney disease, stage 3b; Z79.4 - snf (current) use of insulin Assessment & Plan: 1. Hold Trulicity/Jardiance 2. FSBS qAC/HS 3. Glucose prn 4. Stop IVF with dextrose as pt is now eating and drinking. 5. nutrition consult as pt reports he only eats 1 meal per day. Code(s): E11.22 - TYPE 2 DIABETES MELLITUS W DIABETIC CHRONIC KIDNEY DISEASE (5) Hypokalemia Current Visit: Yes Status: Resolved Assessment & Plan: - resolved Code(s): E87.6 - HYPOKALEMIA - Discharge Discharge Date: 10/11/23 Disposition: Home, Self-Care Condition: Stable Prescriptions: Continue Aspirin EC 81 mg [Ecotrin 81 mg] 1 tab PO DAILY Furosemide 20 mg [Lasix 20 mg] 1 tab PO DAILY Metoprolol Succinate 1 tab PO DAILY Ubidecarenone/Vit E Acet [Co Q-10 100 mg Softgel] 1 each PO DAILY lisinopriL [Lisinopril] 1 tab PO DAILY Clopidogrel Bisulfate [Clopidogrel] 1 tab PO DAILY Potassium Chloride 1 tab PO DAILY Pentoxifylline 1 tab PO BID Evolocumab [Repatha Sureclick] 140 mg SQ UD Discontinued Pioglitazone HCl 1 tab PO DAILY Empagliflozin/Linagliptin [Glyxambi 25 mg-5 mg Tablet] 1 tab PO DAILY Ezetimibe 10 mg [Zetia 10 MG] 10 mg PO HS Dulaglutide [Trulicity] 4.5 mg SQ WEEKLY Insulin Glargine,Hum.rec.anlog [Toueugene Rodriguez Solostar] 50 unit SQ DAILY Additional Instructions: - Please eat 3 meals per day and snacks if needed to prevent hypoglycemia. - Please follow up with PCP tomorrow as scheduled to discuss diabetic meds. HOLD all diabetic meds until you discuss further plan with PCP tomorrow. Follow up with: LINA RICHARDSON [Primary Care Provider] - 10/12/23 2:15 pm WANDY SAL [CONSULTING PHYSICIAN] -
[2023-10-11] MEDS ORDERED: Zetia 10 MG PO SCH (22:00)
== END 2023-10-11 10:46 | disposition home or self-care (01) ==
LOC: ED 18:59 → EDBD 18:59 → ICU 23:07
PROVIDERS: ADMIT Internal Medicine Nephrology; ATTEND Internal Medicine Nephrology
DX: E16.2 Hypoglycemia, unspecified (principal); I12.9 Hypertensive chronic kidney disease with stage 1 through stage 4 chronic kidney disease, or unspecified chronic kidney disease; E11.22 Type 2 diabetes mellitus with diabetic chronic kidney disease; E87.6 Hypokalemia; N18.32 Chronic kidney disease, stage 3b; E78.5 Hyperlipidemia, unspecified; Z79.899 Other long term (current) drug therapy; Z20.828 Contact with and (suspected) exposure to other viral communicable diseases
CPT/HCPCS: 0241U; 36415; 70450; 71045; 76770; 80048; 80053; 80143; 80179; 80307; 81001; 82077; 82570; 82805; 82947; 83036; 83605; 83880; 84300; 84484; 85025; 85027; 87040; 87086; 93041; 94762; 94799; 96360; 99284; 93268; G0378; J0692; J0696; J1650; Q3014; A9270-GY